=== PATIENT | male | born 1965 | race Caucasian/White ===

== ENCOUNTER 2019-09-08 18:30 | Outpatient (RCR) | payer MEDICAID, SELFPAY ==
[2016-01-30 07:56] VITALS: BMI 30.2
--- NOTE | 2019-08-23 12:06 | HP.PTEVAL_ITS ---
Patient's Visit Information DAVID COOK JR is a 53 year old M referred to Physical Therapy by Dilshad Chandler MD with a diagnosis of CERVICAL DDD. H/O COMPRESSION FX.. Date of Evaluation: 08/23/19 Physical Therapist: Ani Street PT, Cert MDT - Visit Plan Frequency: 2-3x /Week Duration: 4-6 Weeks Plan: CERVICAL US, STM, POSTURE CORRECTION/STRENGTHENING, INSTRUCTION IN APPROPRIATE BODY MECHANICS AND ACTIVITY MODIFICATIONS. NICKI UE ROM, STRETCHING AND STRENGTHENING. HEP INSTRUCTION. - Subjective Findings: Work/Leisure: LAST WORKED ABOUT 8-9 YEARS AGO. 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 Disability: ON DISABILITY FOR LLE WEAKNESS, COPD, ASTHMA, BACK PAIN, NECK PAIN AND 2 STROKES. Present symptoms: NICKI NECK PAIN. HEAD PAIN (H/O SEVERE MIRGRAINES 5-6 DAYS A WEEK). INTERMITTENT SHOOTING PAINS DOWN ARMS LIKE AN ELECTRICAL SHOCK ALL THE WAY TO THE FINGERS AND WILL STAY THERE UNTIL NECK POP OR ENOUGH TIME PASSES FOR IT TO EASE UP. Present since: 2000. Pain Scale: Worst - 9/10 Least - 5/10. Currently: 5/10. Commenced as a result of: PATIENT REPORTS HIS NECK HAS HURT EVER SINCE HE BROKE HIS BACK (T12) IN 2000. Symptoms at onset: NECK. Worse: LYING DOWN, BENDING, MVMT, BEING STILL TOO LONG. Better: BETTER WITH FREQUENT CHANGE OF POSITION, GETTING IT TO POP. Disturbed sleep: YES. Previous history/Previous treatment: PATIENT REPORTS HIS NECK HAS HURT EVER SINCE HE BROKE HIS BACK (T12) IN 2000 BUT IT HAS BEEN WORSE IN THE LAST FEW YEARS. REALLY BAD IN THE LAST 2-3 YEARS. PHYSICAL THERAPY AFTER COMPRESSION FRACTURE AND STROKE. YAN'S - BACK AND NECK. LAST YAN IN NECK WAS ABOUT 18 MONTHS AGO - DIDN'T HELP. NO NECK SURGERY. MASSAGE THERAPY. Dizziness: ONLY IF I LAY DOWN FLAT. Tinnitis: CONSTANT. Nausea: ONLY WHEN I LAY FLAT. Shortness of Breath: YES. Difficulty Swollowing: NO. Gait: HAS WALKED WITH CANE SINCE STROKE. NO RECENT CHANGES OTHER THAN BEING ABLE TO WALK A LITTLE BIT BETTER WITHOUT CANE. Accidents: FELL OFF A ROOF ABOUT 85 FEET WHILE WORKING 2000. Unexplained weight loss: NO. Imaging: NONE RECENT. PMH/Recent major surgery: 2 STROKES - MOST RECENT 2011 (LLE WEAKNESS), COPD, ASTHMA. COMPRESSION FX 2001 T12, CHRONIC NECK PAIN, CHRONIC BACK PAIN. - Objective Sitting Posture/Standing Posture: POOR. FORWARD HEAD. NO TORTICOLLIS. Active Correction of posture: PATIENT UNABLE - UPON REQUEST PATIENT REPORTS HE IS SITTING TALL HE CAN WITHOUT SEVERE BACK PAIN. Other Observations: INDEP GAIT INTO PT WITH A STRAIGHT CANE AND LIMP ON THE LLE. NO LOB. 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 RIGHT UE GROSSLY 5/5 WITH MMT'ING EXCEPT SHOULDER GRADED 4/5. LEFT UE 4-/5. Sensory deficit: NICKI UE LIGHT TOUCH SENSATION APPEARS INTACT AND SYMMETRICAL. ROM deficit: NICKI UE'S WFL. Reflexes: UNABLE TO ELICIT NICKI UE DTR'S. Dural Signs: NEGATIVE NICKI UE'S. Cervical Mvmt Loss: Flex: NIL. Pro: NIL. Ext: MOD. Ret: MOD. RSB: MOD. LSB: MOD. R Rot: MOD. L Rot: MOD. LOOKING UP ESPECIALLY INCREASES NECK PAIN ALONG WITH FLEXION. DOESN'T HURT BAD TO LOOK OVER SHOULDERS IF HE GOES SLOW. Postural strength: POOR AND PAIN LIMITED. Palpation: TENDERNESS WITH PALPATION OF NICKI UPPER TRAPS AND POSTERIOR CERVICAL MUSCULATURE. ALSO TENDER WITH LIGHT PALPATION OF ENTIRE UPPER THORACIC AND CERVIAL MUSCULATURE BUT NOT TENDER ALONG OCCIPUT. INCREASED MUSCLE TONE NICKI CERVICAL MUSCULATURE WITH MULTIPLE TRIGGER POINTS. OTHER: INITIATED STANDING ISO NECK RETRACTION DUE TO NOT BEING ABOUT TO LIE DOWN FLAT. - Goals Goal 1:: DECREASE C/O NECK PAIN Goal Time Frame: 4-6 Weeks Goal 2:: IMPROVE PERSONAL CARE, LIFTING, READING, SLEEP, WORK, DRIVING AND RECREATIONAL FUNCTION. Goal Time Frame: 4-6 Weeks Goal 3:: INSTRUCT IN PROPHYLAXIS Goal Time Frame: 4-6 Weeks - Rehabilitation Potential Rehabilitation Potential: Fair - Anticipated Interventions Patient/Client Instruction: Educate patient on: Condition, Plan of Care, Risk Factors, Benefits of Fitness Program For the Purpose of:: To improve self management Therapeutic Exercise to Include: Strength training, Body mechanics, Postural training, Flexibilty training, Active ROM, Scapular Strength/Stabilization For the Purpose of:: To decrease pain, To increase ROM, To improve muscle performance and motor function, To increase tolerance to activity/condition/position, To improve ability of physical actions for home/community/work/leisure Manual Therapy Techniques to Include: Soft tissue mobilization For the Purpose of:: To decrease pain, To increase ROM, To improve nutrient delivery to tissue TENS: Yes Cryotherapy (ice pack, ice massage): Yes Thermo therapy (hot pack): Yes Ultrasound (thermal/non thermal): Yes For the Purpose of:: To decrease pain, To decrease swelling/inflammation, To improve nutrient delivery to tissue Thank you for the opportunity to evaluate your patient. For Medicare and Medicare HMO plans, please review the plan of care and approve it. It will need to be FAXED BACK to us at [phone] for Medicare purposes. For Medicare only, by signing this I certify the plan of care. Please let me know if there are questions or concerns regarding this plan of care. Physician Signature: Date:
--- NOTE | 2019-09-29 17:44 | HP.PT.NRP ---
HP - Discharge Summary (1) - Patient Information DAVID COOK JR was seen in my office for initial evaluation on 08/23/19. The following Plan of Care was established for this patient: Initial Frequency: 2-3x /Week Initial Duration: 4-6 Weeks - Anticipated Interventions Patient/Client Instruction: Educate patient on: Condition, Plan of Care, Risk Factors, Benefits of Fitness Program For the Purpose of:: To improve self management Therapeutic Exercise to Include: Strength training, Body mechanics, Postural training, Flexibilty training, Active ROM, Scapular Strength/Stabilization For the Purpose of:: To decrease pain, To increase ROM, To improve muscle performance and motor function, To increase tolerance to activity/condition/position, To improve ability of physical actions for home/community/work/leisure Manual Therapy Techniques to Include: Soft tissue mobilization For the Purpose of:: To decrease pain, To increase ROM, To improve nutrient delivery to tissue TENS: Yes Cryotherapy (ice pack, ice massage): Yes Thermo therapy (hot pack): Yes Ultrasound (thermal/non thermal): Yes For the Purpose of:: To decrease pain, To decrease swelling/inflammation, To improve nutrient delivery to tissue This patient was last seen in our office . Pertinent comments regarding their Physical therapy will appear below: This patient has not returned to Physical Therapy and is appropriate to return to MD for further follow-up as needed. At this point I will be discontinuing this patient from physical therapy. I would be happy to see this patient again in the future if found appropriate by the physician. Thank you! Ani Street, PT, Cert MDT
== END 2019-09-08 19:00 | disposition home or self-care (01) ==
LOC: PT 18:30
PROVIDERS: Family Provider Family Medicine; PCP Family Medicine; Referring Provider Family Medicine; Visit Provider Family Medicine
DX: M50.30 Other cervical disc degeneration, unspecified cervical region (principal); M51.36 Other intervertebral disc degeneration, lumbar region; Z87.81 Personal history of (healed) traumatic fracture
CPT/HCPCS: 97035; 97140; 97162

== ENCOUNTER 2021-05-05 23:42 | Emergency (ER) | payer MEDICAID, SELFPAY ==
[2021-05-05 23:43] VITALS: BP 150/88; PULSE 77; RESP 14; TEMP 36.3; O2SAT 98; BMI 29.7
--- NOTE | 2021-05-06 00:10 | CT_ITS ---
STUDY: CT BRAIN WITHOUT CONTRAST REASON FOR EXAM: Male, 55 years old. headache RADIATION DOSAGE (If Supplied By Facility): CTDIvol = ( 44.99 ) mGy, DLP = ( 779.24 ) mGycm TECHNIQUE: Transaxial CT imaging of the brain was performed without administration of intravenous contrast material. Individualized dose optimization techniques were used for this CT. COMPARISON: No relevant priors. FINDINGS: Normal soft tissue structures. Normal calvarium. Normal size ventricles and extra-axial spaces for the patient''s age. Normal white matter tracts of the cerebral hemispheres. Normal basal ganglia and thalami. Normal brainstem. Normal cerebellum. There is no intracranial hemorrhage. There are no findings of an acute ischemic infarction. Normal visualized paranasal sinuses. CT/Brain/Head without Contrast IMPRESSION: Normal unenhanced CT scan of the brain. Electronically Signed: Usman Rubin MD at 2:01 EDT Tel , Service support ,
[2021-05-06] MEDS: 0.9% Normal Saline 1,000 ML 1000 ML IV (00:20)
[2021-05-06] MEDS: Morphine 4 MG/ML Syringe IV (00:21)
[2021-05-06] MEDS: Ondansetron 4 MG/2 ML Vial IV (00:21)
[2021-05-06 00:26] LABS: Absolute Lymphocyte Count 2.63 X10^3/uL (0.83-4.51); Absolute Neutrophil Count 5.3 X10^3/uL (2.0-7.7); Basophil# 0.04 X10^3/uL; Basophil% 0.4 % (0-1); Eosinophil# 0.12 X10^3/uL; Eosinophils% 1.3 % (0-5); Hematocrit 43.1 % (40-54); Hemoglobin 15.2 g/dL (13.0-16.5); Lymphocyte # 2.63 X10^3/ul (0.83-4.51); Lymphocyte % 28.9 % (19-41); Mean Corp Hgb Conc 35.3 g/dL (32-36); Mean Corpuscular Hgb 29.8 pg (27.0-32.0); Mean Corpuscular Volume 84.5 fL (80-94); Mean Platelet Vol. 11.3 fl (6.2-12.0); NRBC Flagged by Analyzer 0 % (0-5); Neutrophil # 5.29 X10^3/uL (2.7-7.7); Neutrophil % 58.1 % (47-70); Platelet Count 200 K/mm3 (150-450); RBC Distribution Width CV 12.9 % (11.6-14.6); RBC Distribution Width SD 39.8 fl (35.1-43.9); White Blood Count 9.1 K/mm3 (4.4-11.0)
--- NOTE | 2021-05-06 00:27 | EDS_ITS ---
HPI History of Present Illness Chief Complaint: Headache Narrative Narrative: Patient presents with a headache. As I walk into the room I noticed a small rash on his left forehead region he tells me he has never had chickenpox. He is denying neck pain. No fever or chills. No cough or congestion. Pain is basically localized to his scalp and it hurts when I push on that region. He has no vision changes, he has no confusion or speech difficulties he has no weakness or paresthesias. [facility] Medical History (Updated 05/06/21 @ 02:[address] Kalyan Stahl MD) Asthma Hypertension Migraines TIA (transient ischemic attack) Home Medications omeprazole 20 mg PO DAILY 08/05/13 [History Last Taken 01/30/16 06:00] aspirin 325 mg PO DAILY@0800 02/04/15 [History Last Taken Unknown] albuterol sulfate [Ventolin Hfa (SP)] 1 - 2 puff INHALATION Q4H PRN PRN 08/12/15 [History Last Taken Unknown] oseytqmqck-bcgherlgeqtmw-swen [Esgic] 1 tab PO DAILY PRN PRN 05/05/21 [History Last Taken Unknown] lisinopril 10 mg DAILY 05/05/21 [History Last Taken Unknown] mometasone-formoterol [Dulera] INHALATION 05/05/21 [History Last Taken Unknown] topiramate 25 mg DAILY 05/05/21 [History Last Taken Unknown] acyclovir 800 mg PO 5X/DAY #35 tab 05/06/21 [Rx Last Taken Unknown] oxycodone-acetaminophen [Percocet] 1 tab PO Q6H 3 Days #12 tab 05/06/21 [Rx Last Taken Unknown] Allergy/AdvReac Type Severity Reaction Status Date / Time BERRIES Allergy Swelling Uncoded 09/03/15 21:19 Social History Smoking Status: Current every day smoker tobacco type: cigarettes ROS ROS ED ROS Narrative Past medical history: Reviewed, includes hypertension, hypercholesterolemia, conversion disorder Medications: Reviewed Social history: Noncontributory Review of systems: All systems negative except as indicated General: No fever Eyes: No visual changes ENT: No upper airway congestion, normal voice Neck: No neck pain Cardiovascular: No chest pain Respiratory: No shortness of breath or cough Gastrointestinal: No abdominal pain, nausea vomiting or diarrhea Genitourinary: No dysuria Musculoskeletal: Denies myalgias no difficulty with ambulation Skin: Scalp and forehead rash Neurological: No memory loss, confusion or any focal weakness. Headache as in HPI Psych: No recent behavioral changes Hematologic: No easy bleeding or easy bruising EXAM Physical Exam Narrative Exam Narrative: Physical exam General: Well nourished, Well developed, No Acute Distress Head: Normocephalic, Atraumatic. Somewhat vesicular left frontal rash that I can see through part of his thinning hair. Eyes: Pupils are equal and reactive bilaterally about 3 mm, conjunctiva not pale. Full range of motion without any pain ENT: Moist mucous membranes. Somewhat vesicular left forehead rash Neck: Supple, Nontender, No lymphadenopathy Cardiovascular: Regular rate, Regular rhythm Respiratory: No distress, CTA bilaterally Abdomen: Soft, Nontender, Nondistended Back: Nontender, Normal Inspection. Negative for: CVA tenderness Extremities: Nontender, No edema Skin: As above Neurological: Alert, Normal Strength, Normal Sensation Psychological: Normal affect Const Vital Signs: 05/05/21 23:43 Temperature 97.3 F L Temperature Source Temporal Pulse Rate 77 Respiratory Rate 14 Blood Pressure 150/88 H Blood Pressure Mean 108 Pulse Ox 98 Oxygen Delivery Method Room Air MDM MDM MDM Narrative Medical decision making narrative: Patient has a normal work-up. CT is unremarkable however and reassessing him I do believe he likely has herpes zoster. I will treat him as such. I given analgesia and he improved. Lab Data Labs: Laboratory Results - last 24 hr 05/06/21 05/06/21 00:04 00:04 WBC 9.1 RBC 5.10 Hgb 15.2 Hct 43.1 MCV 84.5 MCH 29.8 MCHC 35.3 RDW Std Deviation 39.8 RDW Coeff of George 12.9 Plt Count 200 MPV 11.3 Immature Gran % (Auto) 0.300 Neut % (Auto) 58.1 Lymph % (Auto) 28.9 [place] % (Auto) 11.0 H Eos % (Auto) 1.3 Baso % (Auto) 0.4 Absolute Neuts (auto) 5.3 Absolute Lymphs (auto) 2.63 Nucleated RBC % 0 Sodium 140 Potassium 3.9 Chloride 110 H Carbon Dioxide 23.0 Anion Gap 7 BUN 16 Creatinine 1.63 H Estim Creat Clear Calc 45.66 Est GFR (MDRD) Af Amer 57 L Est GFR (MDRD) Non-Af 47 L BUN/Creatinine Ratio 9.8 L Glucose 116 H Calcium 8.8 Total Bilirubin 0.50 AST 26 ALT 28 Alkaline Phosphatase 66 Total Protein 7.6 Albumin 3.8 Globulin 3.8 Albumin/Globulin Ratio 1.0 Radiography Diagnostic Testing: Radiology Impression Brain CT 05/06/21 00:10 IMPRESSION: Normal unenhanced CT scan of the brain. Electronically Signed: Usman Rubin MD at 2:01 EDT Tel , Service support , Discharge Plan Triage Chief Complaint: Headache ED Provider: Kalyan Stahl Dx/Rx/DC Orders Clinical Impression: Herpes zoster Instructions: ED Shingles (Herpes Zoster) Prescriptions: New oxycodone-acetaminophen [Percocet] 5-325 mg tablet 1 tab PO Q6H 3 Days Qty: 12 RF: 0 acyclovir 800 mg tablet 800 mg PO 5X/DAY Qty: 35 RF: 0 No Action omeprazole 20 MG capsule 20 mg PO DAILY RF: 0 aspirin 81 MG tablet,chewable 325 mg PO DAILY@0800 RF: 0 albuterol sulfate [Ventolin HFA] 1 INHALER inhaler 1 - 2 puff inhalation Q4H PRN PRN (Reason: Wheezing) RF: 0 topiramate 25 mg tablet 25 mg DAILY RF: 0 wpyiskhquz-sdyqjpbmdurey-trps [Esgic] 50-325-40 mg tablet 1 tab PO DAILY PRN PRN (Reason: Headache) RF: 0 lisinopril 10 mg tablet 10 mg DAILY RF: 0 Dulera 200-5 mcg/actuation HFA aerosol inhaler INHALATION RF: 0 Primary Care Provider: Dilshad Chandler Referrals: Dilshad Chandler MD [Primary Care Provider] - 3-5 Days Disposition Disposition: Home, Self Care
[2021-05-06 00:41] LABS: AST(SGOT) 26 U/L (15-37); Alanine Aminotransfer ALT/SGPT 28 U/L (16-61); Albumin, Serum 3.8 g/dL (3.2-5.0); Alkaline Phosphatase 66 U/L (45-117); Anion Gap 7 (5-15); BUN 16 mg/dL (7-18); BUN/Creat Ratio 9.8 RATIO (10-20); Calcium,Total 8.8 mg/dL (8.5-10.1); Chloride 110 mmol/L (98-107); Creatinine, Serum 1.63 mg/dL (0.70-1.30); EST Glomerular Filtration Rate 47 mL/min (>60); Est Glom Filt Rate - Afr Amer 57 mL/min (>60); Estimated Creatinine Clearance 45.66 ml/min; Globulin 3.8 g/dL (2.2-4.2); Glucose 116 mg/dL (74-106); Potassium 3.9 mmol/L (3.5-5.1); Protein, Total 7.6 g/dL (6.4-8.2); Sodium Level 140 mmol/L (136-145)
[2021-05-06] MEDS: oxyCODONE 5 MG Tablet 10 MG PO (02:30)
[2021-05-06] MEDS: Acyclovir 800 MG Tablet PO (02:31)
[2021-05-06 02:35] VITALS: BP 116/92; PULSE 75; RESP 16; O2SAT 99
== END 2021-05-06 02:35 | disposition home or self-care (01) ==
PROVIDERS: Emergency Provider Emergency Medicine; PCP Family Medicine
DX: B02.9 Zoster without complications (principal); J45.909 Unspecified asthma, uncomplicated; I10 Essential (primary) hypertension; F17.210 Nicotine dependence, cigarettes, uncomplicated; Z86.73 Personal history of transient ischemic attack (TIA), and cerebral infarction without residual deficits; Z79.51 Long term (current) use of inhaled steroids; Z79.899 Other long term (current) drug therapy
CPT/HCPCS: 70450; 80053; 85025; 96361; 96374; 96375; 99283; J7030; A4216; J2405

== ENCOUNTER 2021-09-02 15:31 | Emergency (ER) | payer MEDICAID, SELFPAY ==
[2021-09-02 15:32] VITALS: BP 120/90; PULSE 104; RESP 16; TEMP 36.6; O2SAT 96; BMI 31.0
[2021-09-02 15:38] VITALS: BP 120/90; PULSE 104; RESP 16; TEMP 36.6; O2SAT 96
--- NOTE | 2021-09-02 16:01 | ED.VIS.DYS ---
HPI History of Present Illness Chief Complaint: Cold Sx Informant: patient Onset/Context/Timing Onset: Days (4) Context: gradual Timing: Continuous Quality: Positive for - (Lightheaded) Worsened by: Nothing Relieved by: Nothing Associated Symptoms cough, rhinorrhea, fever, clear sputum and yellow sputum; Negative for post nasal drip, ear pain, sore throat, chills, sweats, white sputum or green sputum Chest Pain: Positive for None Narrative Narrative: Patient presents with cough and congestion that has been getting worse over the last 4 days. Patient states he feels lightheaded. Patient states he is coughing up some clear sputum but occasionally coughs up some yellow sputum in the mornings. Patient admits to some rhinorrhea. Patient states he had a fever at home of 100. Patient admits to some rhinorrhea. Patient denies any chest pain or shortness of breath. Patient admits to some nausea, vomiting, and diarrhea. Patient also admits to a headache. [facility] Medical History (Updated 09/02/21 @ 17:[address] Leonardo Carroll, ) Asthma Hypertension Migraines TIA (transient ischemic attack) Home Medications omeprazole 20 mg PO DAILY 08/05/13 [History Last Taken 01/30/16 06:00] aspirin 325 mg PO DAILY@0800 02/04/15 [History Last Taken Unknown] albuterol sulfate [Ventolin Hfa (SP)] 1 - 2 puff INHALATION Q4H PRN PRN 08/12/15 [History Last Taken Unknown] qqnceygnmq-phbcthmifgdrg-qpzk [Esgic] 1 tab PO DAILY PRN PRN 05/05/21 [History Last Taken Unknown] lisinopril 10 mg DAILY 05/05/21 [History Last Taken Unknown] mometasone-formoterol [Dulera] INHALATION 05/05/21 [History Last Taken Unknown] topiramate 25 mg DAILY 05/05/21 [History Last Taken Unknown] acyclovir 800 mg PO 5X/DAY #35 tab 05/06/21 [Rx Last Taken Unknown] oxycodone-acetaminophen [Percocet] 1 tab PO Q6H 3 Days #12 tab 05/06/21 [Rx Last Taken Unknown] Allergy/AdvReac Type Severity Reaction Status Date / Time BERRIES Allergy Swelling Uncoded 09/02/21 15:34 Surgical History Hx of cardiac catheterization Hx of cataract surgery Hx of sinus surgery Social History Smoking Status: Current every day smoker tobacco type: cigarettes ROS ROS ED Constitutional Constitutional ED: Denies chills or fever(s) Eyes Eyes: Denies blurry vision or change in vision ENT ENT ED: Denies rhinorrhea or sore throat Cardiovascular Cardiovascular: Denies chest pain or palpitations Respiratory/Chest Respiratory/Chest: Reports cough and sputum; Denies dyspnea Gastrointestinal Gastrointestinal: Reports diarrhea, nausea and vomiting Genitourinary Genitourinary ED: Denies dysuria or hematuria Musculoskeletal Musculoskeletal: Denies back pain or neck pain Integumentary Denies abscess or rash Neurologic Neurologic: Reports headache(s); Denies weakness Allergic/Immunologic Allergic/Immunologic ED: Denies mouth swelling or urticaria EXAM Physical Exam Const Vital Signs: 09/02/21 15:32 09/02/21 15:38 09/02/21 16:09 Temperature 98 F 98 F Temperature Source Temporal Temporal Pulse Rate 104 H 104 H Respiratory Rate 16 16 Respiratory Effort Short of Breath Respiratory Depth Normal Respiratory Pattern Normal Blood Pressure 120/90 H 120/90 H Blood Pressure Mean 100 100 Pulse Ox 96 96 Oxygen Delivery Method Room Air Room Air Room Air 09/02/21 16:12 Temperature Temperature Source Pulse Rate 92 Respiratory Rate 14 Respiratory Effort Respiratory Depth Respiratory Pattern Normal Blood Pressure Blood Pressure Mean Pulse Ox Oxygen Delivery Method Positive well nourished and well developed General Appearance ED: well developed HEENT Reports moist mucous membranes Neck supple and no JVD Resp normal respiratory effort Auscultation: wheezes expiratory wheezes and throughout Cardio regular rate, regular rhythm and no murmurs GI non-tender Palpation: soft Neuro oriented x3, CN's II-XII intact bilaterally and no sensory deficits noted Sensorium / Orientation: alert Motor Exam: strength 5/5 throughout Psych mental status grossly normal Skin Lesions: no lesions Rashes: no rashes MDM MDM MDM Narrative Medical decision making narrative: Portable 1 view chest x-ray was obtained. On my interpretation, lung hoff are clear. There is normal cardiac silhouette. Bony thorax is normal. There is no acute process noted. Radiologist also interpreted the x-ray and agrees. CBC and comprehensive metabolic profile were obtained and were essentially within normal limits. Creatinine was slightly elevated at 1.47 but this is consistent with prior results. COVID-19 rapid antigen was obtained and was negative. Influenza swabs were negative. Patient was advised of his findings. Patient was instructed to take Tylenol or ibuprofen as needed for any fevers or pain. Patient was instructed to drink plenty of fluids. Patient was instructed to follow-up with his primary care physician in 5 to 7 days. Patient understood and was agreeable with the plan. All questions were answered. Lab Data Attestation: I reviewed the patient's lab results. Labs: Laboratory Results - last 24 hr 09/02/21 09/02/21 16:07 16:07 WBC 7.8 RBC 5.27 Hgb 15.2 Hct 45.3 MCV 86.0 MCH 28.8 MCHC 33.6 RDW Std Deviation 39.9 RDW Coeff of [place] 12.8 Plt Count 188 MPV 10.2 Immature Gran % (Auto) 0.300 Neut % (Auto) 57.6 Lymph % (Auto) 28.1 [place] % (Auto) 12.1 H Eos % (Auto) 1.3 Baso % (Auto) 0.6 Absolute Neuts (auto) 4.5 Absolute Lymphs (auto) 2.19 Nucleated RBC % 0 Sodium 139 Potassium 4.1 Chloride 110 H Carbon Dioxide 27.0 Anion Gap 2 L BUN 17 Creatinine 1.47 H Estim Creat Clear Calc 45.16 Est GFR (MDRD) Af Amer 64 Est GFR (MDRD) Non-Af 53 L BUN/Creatinine Ratio 11.6 Glucose 113 H Calcium 9.0 Total Bilirubin 0.80 AST 38 H ALT 38 Alkaline Phosphatase 56 Total Protein 7.9 Albumin 3.6 Globulin 4.3 H Albumin/Globulin Ratio 0.8 L Radiography Chest X-Ray - ED: 1 View, Read by ED Physician, Read by Radiologist and Normal Diagnostic Testing: Clinical Impression(s) from Imaging Studies Chest X-Ray 09/02/21 16:15 IMPRESSION: No acute radiographic abnormalities. Electronically Signed: Nirmal Juarez MD at 17:01 EST Tel , Service support , Discharge Plan Triage Chief Complaint: Cold Sx ED Provider: Schwiger,Leonardo Dx/Rx/DC Orders Clinical Impression: Viral URI Instructions: ED URI, Viral, No Abx (Adult) Prescriptions: No Action omeprazole 20 MG capsule 20 mg PO DAILY RF: 0 aspirin 81 MG tablet,chewable 325 mg PO DAILY@0800 RF: 0 albuterol sulfate [Ventolin HFA] 1 INHALER inhaler 1 - 2 puff inhalation Q4H PRN PRN (Reason: Wheezing) RF: 0 topiramate 25 mg tablet 25 mg DAILY RF: 0 trpmniujaz-ymycjdcjcrvlc-febs [Esgic] 50-325-40 mg tablet 1 tab PO DAILY PRN PRN (Reason: Headache) RF: 0 lisinopril 10 mg tablet 10 mg DAILY RF: 0 Dulera 200-5 mcg/actuation HFA aerosol inhaler INHALATION RF: 0 oxycodone-acetaminophen [Percocet] 5-325 mg tablet 1 tab PO Q6H 3 Days Qty: 12 RF: 0 acyclovir 800 mg tablet 800 mg PO 5X/DAY Qty: 35 RF: 0 Primary Care Provider: Dilshad Chandler Referrals: Dilshad Chandler MD [Primary Care Provider] - 3-5 Days Disposition Disposition: Home, Self Care
[2021-09-02 16:09] VITALS: O2SAT 96
[2021-09-02 16:12] VITALS: PULSE 92; RESP 14
--- NOTE | 2021-09-02 16:15 | RAD_ITS ---
INDICATION: Dyspnea EXAMINATION/TECHNIQUE: X-RAY - XR Chest 1 View COMPARISON: 06/06/2013. FINDINGS: The lungs are clear. The cardiomediastinal silhouette is unremarkable. No pleural effusion or pneumothorax. No acute osseous abnormalities. RAD/Chest 1 View (Portable) IMPRESSION: No acute radiographic abnormalities. Electronically Signed: Nirmal Juarez MD at 17:01 EST Tel , Service support ,
[2021-09-02 16:16] LABS: Absolute Lymphocyte Count 2.19 X10^3/uL (0.83-4.51); Absolute Neutrophil Count 4.5 X10^3/uL (2.0-7.7); Basophil# 0.05 X10^3/uL; Basophil% 0.6 % (0-1); Eosinophils% 1.3 % (0-5); Hematocrit 45.3 % (40-54); Hemoglobin 15.2 g/dL (13.0-16.5); Lymphocyte # 2.19 X10^3/ul (0.83-4.51); Lymphocyte % 28.1 % (19-41); Mean Corp Hgb Conc 33.6 g/dL (32-36); Mean Corpuscular Hgb 28.8 pg (27.0-32.0); Mean Platelet Vol. 10.2 fl (6.2-12.0); Monocyte# 0.94 X10^3/uL; Monocyte% 12.1 % (0-10); NRBC Flagged by Analyzer 0 % (0-5); Neutrophil # 4.49 X10^3/uL (2.7-7.7); Neutrophil % 57.6 % (47-70); Platelet Count 188 K/mm3 (150-450); RBC Distribution Width CV 12.8 % (11.6-14.6); RBC Distribution Width SD 39.9 fl (35.1-43.9); Red Blood Count 5.27 M/mm3 (4.6-6.2); White Blood Count 7.8 K/mm3 (4.4-11.0)
[2021-09-02 16:33] LABS: ALB/GLOB Ratio 0.8 RATIO (0.9-2.4); AST(SGOT) 38 U/L (15-37); Alanine Aminotransfer ALT/SGPT 38 U/L (16-61); Albumin, Serum 3.6 g/dL (3.2-5.0); Alkaline Phosphatase 56 U/L (45-117); Anion Gap 2 (5-15); BUN 17 mg/dL (7-18); BUN/Creat Ratio 11.6 RATIO (10-20); Chloride 110 mmol/L (98-107); Creatinine, Serum 1.47 mg/dL (0.70-1.30); EST Glomerular Filtration Rate 53 mL/min (>60); Est Glom Filt Rate - Afr Amer 64 mL/min (>60); Estimated Creatinine Clearance 45.16 ml/min; Globulin 4.3 g/dL (2.2-4.2); Glucose 113 mg/dL (74-106); Potassium 4.1 mmol/L (3.5-5.1); Protein, Total 7.9 g/dL (6.4-8.2); Sodium Level 139 mmol/L (136-145)
[2021-09-02 17:42] VITALS: BP 126/82; PULSE 90; RESP 16; O2SAT 98
== END 2021-09-02 17:43 | disposition home or self-care (01) ==
PROVIDERS: Emergency Provider Emergency Medicine; PCP Family Medicine
DX: J06.9 Acute upper respiratory infection, unspecified (principal); J45.909 Unspecified asthma, uncomplicated; I10 Essential (primary) hypertension; F17.210 Nicotine dependence, cigarettes, uncomplicated; Z86.73 Personal history of transient ischemic attack (TIA), and cerebral infarction without residual deficits; Z79.51 Long term (current) use of inhaled steroids; Z79.899 Other long term (current) drug therapy
CPT/HCPCS: 71045; 80053; 85025; 87426; 87804; 94640; 99283; A4216

== ENCOUNTER 2021-09-16 15:18 | Emergency (ER) | payer MEDICAID, SELFPAY ==
[2021-09-16 15:19] VITALS: BP 140/99; PULSE 88; RESP 16; TEMP 35.8; O2SAT 96; BMI 29.0
--- NOTE | 2021-09-16 15:33 | CT_ITS ---
STUDY: CTA OF THE BRAIN REASON FOR EXAM: Male, 55 years old. headache RADIATION DOSAGE (If Supplied By Facility): CTDIvol = ( 16.69 ) mGy, DLP = ( 387.10 ) mGycm TECHNIQUE: CT head without IV contrast. CT angiography was performed with a multi-detector CT scanner. Data acquisition was obtained from the skull base through the vertex following intravenous administration of IV 100mL [id number]-[id number]. MIP images were reconstructed from the axial data set. Post-processing of the angiographic images was performed, with multiplanar reformation and 3D reconstruction. Individualized dose optimization techniques were used for this CT. COMPARISON: Prior CT head 25 April 2012, 21 October 2011 MR a brain FINDINGS: Normal bilateral petrous carotid arteries. Normal right cavernous carotid artery with a normal supraclinoid bifurcation. Normal left cavernous carotid artery with a normal supraclinoid bifurcation. Normal right A1 segments of the anterior cerebral artery. Normal left A1 segments of the anterior cerebral artery. Normal intact anterior communicating artery (ACOM). Normal bilateral A2 segments of the anterior cerebral arteries. Normal right M1 and M2 segments of the middle cerebral arteries, with a normal M1 bifurcation. Normal left M1 and M2 segments of the middle cerebral arteries, with a normal M1 bifurcation. 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 Normal bilateral vertebral arteries. Normal basilar artery with a normal basilar bifurcation. The visualized bilateral superior cerebellar (SCA) arteries are normal. Normal bilateral, P2 and visualized P3 segments of the posterior cerebral arteries. Congenitally aplastic left P1 segment. There is no demonstrated aneurysm of the [place]. There is no demonstrated abnormality of the visualized brain. Appearance is stable since prior. IMPRESSION: Normal [place] without a demonstrated aneurysm or hemodynamically significant stenosis. Electronically Signed: Yohan Guerrero MD at 17:24 EST Tel , Service support , STUDY: CT BRAIN WITHOUT CONTRAST REASON FOR EXAM: Male, 55 years old. Headache RADIATION DOSAGE (If Supplied By Facility): CTDIvol = ( 44.99 ) mGy, DLP = ( 734.24 ) mGycm TECHNIQUE: Transaxial CT imaging of the brain was performed without administration of intravenous contrast material. Individualized dose optimization techniques were used for this CT. COMPARISON: 06 May 2021 FINDINGS: Brain parenchyma is without focal lesions, mass effect, acute intracranial hemorrhage, extra parenchymal fluid collections, hydrocephalus or herniation. The skull is intact. CT/CTA Head W/WO Contrast IMPRESSION: 1. Normal CT brain. Electronically Signed: Yohan Guerrero MD at 17:25 EST Tel , Service support ,
--- NOTE | 2021-09-16 15:35 | EDS_ITS ---
HPI History of Present Illness Chief Complaint: Headache Narrative Narrative: Patient presents with a headache for the past 10 days. This was gradual in onset and got worse. He has a history of migraines however this is somewhat different. Most of his migraines are frontal this 1 is in the posterior. He has no neck pain or stiffness no fevers or chills. He has no vision changes no nausea or vomiting. No temporal pain. No chest pain or shortness of breath. No weakness or paresthesias or gait abnormalities. [facility] Medical History (Updated 09/16/21 @ 19:[address] Kalyan Stahl MD) Asthma Hypertension Migraines TIA (transient ischemic attack) Home Medications omeprazole 20 mg PO DAILY 08/05/13 [History Last Taken 01/30/16 06:00] aspirin 325 mg PO DAILY@0800 02/04/15 [History Last Taken Unknown] albuterol sulfate [Ventolin Hfa (SP)] 1 - 2 puff INHALATION Q4H PRN PRN 08/12/15 [History Last Taken Unknown] sjyoxhsjdk-yxrijqwiocjrv-rzty [Esgic] 1 tab PO DAILY PRN PRN 05/05/21 [History Last Taken Unknown] lisinopril 10 mg DAILY 05/05/21 [History Last Taken Unknown] mometasone-formoterol [Dulera] 2 puff INHALATION DAILY 05/05/21 [History Last Taken Unknown] topiramate 25 mg DAILY 05/05/21 [History Last Taken Unknown] acyclovir 800 mg PO 5X/DAY #35 tab 05/06/21 [Rx Last Taken Unknown] oxycodone-acetaminophen [Percocet] 1 tab PO Q6H 3 Days #12 tab 05/06/21 [Rx Last Taken Unknown] nortriptyline 50 mg PO QHS #5 cap 09/16/21 [Rx Last Taken Unknown] Allergy/AdvReac Type Severity Reaction Status Date / Time BERRIES Allergy Swelling Uncoded 09/02/21 15:34 Surgical History Hx of cardiac catheterization Hx of cataract surgery Hx of sinus surgery Social History Smoking Status: Current every day smoker tobacco type: cigarettes ROS ROS ED ROS Narrative Past medical history: Reviewed, significant for hypertension, hyperlipidemia chronic back and leg pain Medications: Reviewed Social history: Noncontributory Review of systems: All systems negative except as indicated General: No fever. Headache as in HPI Eyes: No visual changes ENT: No upper airway congestion, normal voice Neck: No neck pain Cardiovascular: No chest pain Respiratory: No shortness of breath or cough Gastrointestinal: No abdominal pain, nausea vomiting or diarrhea Genitourinary: No dysuria Musculoskeletal: Chronic back and leg pain Skin: No rash Neurological: No memory loss, confusion or any focal weakness Psych: No recent behavioral changes Hematologic: No easy bleeding or easy bruising EXAM Physical Exam Narrative Exam Narrative: Physical exam General: Patient appears somewhat uncomfortable. Head: Normocephalic, Atraumatic. I can reproduce his pain in the posterior occiput region on the right no temporal artery pain no mastoid tenderness. Eyes: Conjunctiva not pale ENT: Slightly dry mucous membranes Neck: Supple, Nontender, No lymphadenopathy Cardiovascular: Regular rate, Regular rhythm Respiratory: No distress, CTA bilaterally Abdomen: Soft, Nontender, Nondistended Back: Nontender, Normal Inspection. Negative for: CVA tenderness Extremities: Nontender, No edema Skin: Normal color, No rash Neurological: Alert, Normal Strength, Normal Sensation Psychological: Normal affect Const Vital Signs: 09/16/21 15:19 09/16/21 18:49 Temperature 96.5 F L Temperature Source Temporal Pulse Rate 88 85 Respiratory Rate 16 16 Blood Pressure 140/99 H 142/79 H Blood Pressure Mean 112 100 Pulse Ox 96 97 Oxygen Delivery Method Room Air Room Air MDM MDM MDM Narrative Medical decision making narrative: Patient has a normal ED work-up. Since he did not improve after a migraine cocktail, I went back to examine him he does little ve quite a bit of pain in that occipital notch region, I was worried about occipital neuralgia, I did a nerve block with lidocaine see procedure note below. This improved his pain significantly thus I placed 20 mg of Kenalog. Otherwise he can follow-up with his doctor. Procedure note: Occipital nerve block Verbal consent obtained. I used alcohol and Shur-Clens. A total of 5 mL of 1% lidocaine were injected in the occipital notch. After 5 minutes patient had significant improvement I went back and placed 20 mg of triamcinolone in that same occipital notch. Patient tolerated procedure well. Radiography Diagnostic Testing: Clinical Impression(s) from Imaging Studies Head CTA 09/16/21 15:33 IMPRESSION: 1. Normal CT brain. Electronically Signed: Yohan Guerrero MD at 17:25 EST Tel , Service support , Discharge Plan Triage Chief Complaint: Headache ED Provider: Kalyan Stahl Dx/Rx/DC Orders Clinical Impression: Headache, Occipital neuralgia Instructions: Understanding Headache Pain Prescriptions: New nortriptyline 50 mg capsule 50 mg PO QHS Qty: 5 RF: 0 No Action omeprazole 20 MG capsule 20 mg PO DAILY RF: 0 aspirin 81 MG tablet,chewable 325 mg PO DAILY@0800 RF: 0 albuterol sulfate [Ventolin HFA] 1 INHALER inhaler 1 - 2 puff inhalation Q4H PRN PRN (Reason: Wheezing) RF: 0 topiramate 25 mg tablet 25 mg DAILY RF: 0 wmodluefne-vdpzkqndsaubk-posl [Esgic] 50-325-40 mg tablet 1 tab PO DAILY PRN PRN (Reason: Headache) RF: 0 lisinopril 10 mg tablet 10 mg DAILY RF: 0 Dulera 200-5 mcg/actuation HFA aerosol inhaler 2 puff INHALATION DAILY RF: 0 oxycodone-acetaminophen [Percocet] 5-325 mg tablet 1 tab PO Q6H 3 Days Qty: 12 RF: 0 acyclovir 800 mg tablet 800 mg PO 5X/DAY Qty: 35 RF: 0 Primary Care Provider: Dilshad Chandler Referrals: Dilshad Chandler MD [Primary Care Provider] - 3-5 Days Disposition Disposition: Home, Self Care
[2021-09-16] MEDS: 0.9% Normal Saline 1,000 ML 999 ML IV (16:32)
[2021-09-16] MEDS: Ketorolac 15 MG/ML Vial IV (16:33)
[2021-09-16] MEDS: DiphenhydrAMINE 50 MG/ML Syringe 25 MG IV (16:33)
[2021-09-16] MEDS: Metoclopramide 10 MG/2 ML Vial IV (16:33)
[2021-09-16] MEDS: Lidocaine 1% (20 ml mdv) 20 ML Vial INFILT (18:35)
[2021-09-16 18:49] VITALS: BP 142/79; PULSE 85; RESP 16; O2SAT 97
[2021-09-16] MEDS: Triamcinolone Acetonide 40 MG/ML Vial IM (18:50)
[2021-09-16] MEDS: oxyCODONE 5 MG Tablet 10 MG PO (19:35)
[2021-09-16 19:36] VITALS: BP 165/105; PULSE 72; RESP 16; O2SAT 98
== END 2021-09-16 19:40 | disposition home or self-care (01) ==
PROVIDERS: Emergency Provider Emergency Medicine; PCP Family Medicine
DX: M54.81 Occipital neuralgia (principal); I10 Essential (primary) hypertension; J45.909 Unspecified asthma, uncomplicated; F17.210 Nicotine dependence, cigarettes, uncomplicated; Z79.51 Long term (current) use of inhaled steroids; Z79.899 Other long term (current) drug therapy
CPT/HCPCS: 64450; 70496; 96361; 96372; 96374; 96375; 99283; J7030; Q9967

== ENCOUNTER 2022-05-23 15:47 | Emergency (ER) | payer MEDICAID, SELFPAY ==
[2022-05-23 15:48] VITALS: BP 132/89; PULSE 88; RESP 16; TEMP 36.7; O2SAT 97; BMI 29.8
[2022-05-23] MEDS: 0.9% Normal Saline 1,000 ML 1000 ML IV (16:36)
[2022-05-23 16:44] LABS: Bacteria 0 SEEN /hpf (None Seen); Mucous, Urine 0 SEEN /hpf (<or=2+); Red Blood Cells-Urine 0 SEEN /hpf (0-5); Squamous Epithelial Cells - UA 0 SEEN /hpf (0-5); White Blood Cells 0 SEEN /hpf (0-5)
[2022-05-23 16:47] LABS: Absolute Lymphocyte Count 2.86 X10^3/uL (0.83-4.51); Absolute Neutrophil Count 6.1 X10^3/uL (2.0-7.7); Basophil# 0.04 X10^3/uL; Basophil% 0.4 % (0-1); Eosinophil# 0.08 X10^3/uL; Eosinophils% 0.8 % (0-5); Hematocrit 44.8 % (40-54); Hemoglobin 15.7 g/dL (13.0-16.5); Lymphocyte # 2.86 X10^3/ul (0.83-4.51); Lymphocyte % 28.5 % (19-41); Mean Corpuscular Hgb 28.9 pg (27.0-32.0); Mean Corpuscular Volume 82.5 fL (80-94); Mean Platelet Vol. 10.6 fl (6.2-12.0); Monocyte# 0.97 X10^3/uL; Monocyte% 9.7 % (0-10); NRBC Flagged by Analyzer 0 % (0-5); Neutrophil # 6.05 X10^3/uL (2.7-7.7); Neutrophil % 60.2 % (47-70); Platelet Count 205 K/mm3 (150-450); RBC Distribution Width CV 13.2 % (11.6-14.6); RBC Distribution Width SD 39.2 fl (35.1-43.9); Red Blood Count 5.43 M/mm3 (4.6-6.2)
--- NOTE | 2022-05-23 16:54 | EDS_ITS ---
HPI <JAMIE Rasmussen - Last Filed: 05/23/22 18:02> History of Present Illness Chief Complaint: Abd Pain Narrative Narrative: 56-year-old male with history of hypertension, hyperlipidemia, TIA, presents to the emergency department with 3 days of right lower quadrant abdominal pain. Patient did speak with his physician, [facility]. Patient denies any nausea, vomiting, patient does state to have some diarrhea. Patient does state to have some blood in his stool however this has been ongoing for years. Patient states he usually has 3 bloody stools a month. He has been seen Dr. Chandler for several years for this and has had multiple colonoscopies. He denies any fevers or chills PFS <JAMIE Rasmussen - Last Filed: 05/23/22 18:02> [facility] Medical History (Updated 05/23/22 @ 18:02 by JAMIE Rasmussen) Asthma Hypertension Migraines TIA (transient ischemic attack) Home Medications omeprazole 20 mg capsule,delayed release 20 mg PO DAILY 08/05/13 [History Last Taken 01/30/16 06:00] aspirin 81 mg chewable tablet 325 mg PO DAILY@0800 02/04/15 [History Last Taken Unknown] albuterol sulfate 90 mcg/actuation aerosol inhaler (Ventolin HFA) 1 - 2 puff inhalation Q4H PRN PRN Wheezing 08/12/15 [History Last Taken Unknown] gyudhfulkb-geaprupuhllxp-rpubaelo 50 mg-325 mg-40 mg tablet (Esgic) 1 tab PO DAILY PRN PRN Headache 05/05/21 [History Last Taken Unknown] lisinopril 10 mg tablet 10 mg DAILY 05/05/21 [History Last Taken Unknown] mometasone-formoterol HFA 200 mcg-5 mcg/actuation aerosol inhaler (Dulera) 2 puff inhalation DAILY 05/05/21 [History Last Taken Unknown] topiramate 25 mg tablet 25 mg DAILY 05/05/21 [History Last Taken Unknown] oxycodone-acetaminophen 5 mg-325 mg tablet (Percocet) 1 tab PO Q6H 3 days #12 tabs 05/06/21 [Rx Last Taken Unknown] Allergy/AdvReac Type Severity Reaction Status Date / Time BERRIES Allergy Swelling Uncoded 05/23/22 16:08 Surgical History Hx of cardiac catheterization Hx of cataract surgery Hx of sinus surgery Social History Smoking Status: Current every day smoker tobacco type: cigarettes ROS <CORDELL RasmussenC - Last Filed: 05/23/22 18:02> ROS ED ROS Narrative Constitutional: Negative for fever, chills, weight loss, weakness Eyes: Negative for vision loss, vision change, double vision ENT: Negative for any sore throat, ear pain, congestion Cardiovascular: Negative for any chest pain, tightness, palpitations Respiratory: Negative for any cough, sputum production, hemoptysis, dyspnea, dyspnea on exertion, orthopnea Gastrointestinal: Negative for any nausea, vomiting, constipation, blood in stool, blood in vomit. Positive for abdominal pain, diarrhea : Negative for any urinary frequency, dysuria, retention, blood in urine Muscle skeletal: Negative for any muscle joint pain, stiffness, myalgias, arthralgias, neck pain, back pain Neurological: Negative for any headache, syncope, numbness or tingling, dizziness Skin: Negative for any rashes, lumps, itching, abrasions, lacerations Psychiatric: Negative for any depression, anxiety, stress, suicidal ideation, homicidal ideation Hematologic: Negative for any easy bruising, excessive bruising, easy bleeding Allergies: Negative for any eczema, hives, rash EXAM <JAMIE Rasmussen - Last Filed: 05/23/22 18:02> Physical Exam Narrative Exam Narrative: Vital signs reviewed. HEET: Head normocephalic atraumatic, TMs clear bilaterally. Posterior pharynx is clear, moist mucous membranes. Nares clear bilaterally. Neck: Supple with no lymphadenopathy or tenderness. No signs of meningismus, negative jolt sign. Cardiac: Regular rate and rhythm no murmurs gallops or rubs, equal peripheral pu lses bilaterally. Respiratory: Lungs clear to auscultation bilaterally. No chest tenderness. Abdomen: Soft, nondistended. No abdominal bruit or pulsatile masses. No hepatosplenomegaly. Positive for right lower quad abdominal pain, very specific point in the right lower quadrant abdominal pain Extremities: No peripheral edema, no signs of gross trauma or deformity. Active full range of motion of all extremities. Neuro: Cranial nerves II through XII intact, no focal neurological deficits. Skin: Clean dry and intact with no rash, purpura, petechiae, vesicles or pustules. Backs/flank: No CVA tenderness, no midline spinal tenderness, no deformity. Psych: Normal mood and affect. No SI, HI or acute psychosis. Const Vital Signs: 05/23/22 15:48 05/23/22 15:48 05/23/22 18:15 Temperature 98.1 F 98.1 F 98.1 F Temperature Source Temporal Temporal Temporal Pulse Rate 88 88 88 Respiratory Rate 16 16 17 Blood Pressure 132/89 H 132/89 H 116/86 H Blood Pressure Mean 103 103 96 Pulse Ox 97 97 99 Oxygen Delivery Method Room Air Room Air Room Air 05/23/22 18:16 Temperature 98.1 F Temperature Source Pulse Rate 88 Respiratory Rate 17 Blood Pressure 116/86 H Blood Pressure Mean Pulse Ox 99 Oxygen Delivery Method Image ED - Body Diagram Man: 1. RLQ abdominal pain <Gentry Walsh MD - Last Filed: 05/24/22 00:13> Physical Exam Const Vital Signs: 05/23/22 15:48 05/23/22 15:48 05/23/22 18:15 Temperature 98.1 F 98.1 F 98.1 F Temperature Source Temporal Temporal Temporal Pulse Rate 88 88 88 Respiratory Rate 16 16 17 Blood Pressure 132/89 H 132/89 H 116/86 H Blood Pressure Mean 103 103 96 Pulse Ox 97 97 99 Oxygen Delivery Method Room Air Room Air Room Air 05/23/22 18:16 Temperature 98.1 F Temperature Source Pulse Rate 88 Respiratory Rate 17 Blood Pressure 116/86 H Blood Pressure Mean Pulse Ox 99 Oxygen Delivery Method MDM <JAMIE Rasmussen - Last Filed: 05/23/22 18:02> [facility] Lab Data Labs: Laboratory Results - last 24 hr 05/23/22 05/23/22 05/23/22 16:30 16:30 16:30 WBC 10.0 RBC 5.43 Hgb 15.7 Hct 44.8 MCV 82.5 MCH 28.9 MCHC 35.0 RDW Std Deviation 39.2 RDW Coeff of George 13.2 Plt Count 205 MPV 10.6 Immature Gran % (Auto) 0.400 Neut % (Auto) 60.2 Lymph % (Auto) 28.5 [place] % (Auto) 9.7 Eos % (Auto) 0.8 Baso % (Auto) 0.4 Absolute Neuts (auto) 6.1 Absolute Lymphs (auto) 2.86 Nucleated RBC % 0 Sodium 136 Potassium 4.2 Chloride 105 Carbon Dioxide 27.0 Anion Gap 4 L BUN 15 Creatinine 1.19 Estim Creat Clear Calc 64.03 Est GFR (MDRD) Af Amer 81 Est GFR (MDRD) Non-Af 67 BUN/Creatinine Ratio 12.6 Glucose 98 Calcium 8.9 Urine Color Yellow Urine Clarity Clear Urine pH 6.0 Ur Specific [place] 1.020 Urine Protein 15 H Urine Glucose (UA) Normal Urine Ketones Negative Urine Occult Blood 10 H Urine Nitrite Negative Urine Bilirubin Negative Urine Urobilinogen 4 H Ur Leukocyte Esterase Negative Urine RBC 0 SEEN Urine WBC 0 SEEN Ur Squamous Epith Cells 0 SEEN Urine Bacteria 0 SEEN Urine Mucus 0 SEEN Radiography Diagnostic Testing: Clinical Impression(s) from Imaging Studies Abdomen/Pelvis CT 05/23/22 17:11 IMPRESSION: Mildly enlarged nonspecific fatty infiltrated liver. No evidence for small bowel obstruction or other acute abnormality. Electronically Signed: Lloyd Haddad MD at 17:37 EDT , Treatment and Re-Evaluation Narrative: Patient appears well, patient appears nontoxic, vital signs are stable. Patient presents to the emergency department with complaints of 3 days of right lower quadrant abdominal pain, concerning for appendicitis or other abdominal pathology. He did see his PCP referred him here. Patient did receive a full abdominal work-up, patient CBC was unremarkable, patient's chemistries were unremarkable, patient's urinalysis was negative for any infection. Patient did receive a CT scan of the abdomen pelvis with IV contrast, this did show mildly enlarged nonspecific fatty infiltration of the liver however no other acute abnormality. There is no evidence of any bowel obstruction, appendicitis, di verticulitis. Patient is happy with the plan of care, he will follow-up with his PCP. Patient states his pain overall is around 1 at this time, he does not want anything for home. He is stable for discharge <Gentry Walsh MD - Last Filed: 05/24/22 00:13> MDM MDM Narrative Medical decision making narrative: I have personally performed a face to face assessment of the patient and have reviewed the DANIEL Note. I performed a substantive portion of the visit including all aspects of the following. My beltrán findings include: History is right lower quadrant abdominal pain times days. Seen by primary care physician for rule out appendicitis Exam is afebrile. Vital signs noted. Abdomen soft with mild tenderness to palpation right lower quadrant. No rebound or guarding. Negative peritoneal signs. Medical Decision Making check labs. Check CT scan. Negative for appendicitis. No acute process. Discharge. Other additions or changes: [None] Lab Data Attestation: I reviewed the patient's lab results. Labs: Laboratory Results - last 24 hr 05/23/22 05/23/22 05/23/22 16:30 16:30 16:30 WBC 10.0 RBC 5.43 Hgb 15.7 Hct 44.8 MCV 82.5 MCH 28.9 MCHC 35.0 RDW Std Deviation 39.2 RDW Coeff of George 13.2 Plt Count 205 MPV 10.6 Immature Gran % (Auto) 0.400 Neut % (Auto) 60.2 Lymph % (Auto) 28.5 [place] % (Auto) 9.7 Eos % (Auto) 0.8 Baso % (Auto) 0.4 Absolute Neuts (auto) 6.1 Absolute Lymphs (auto) 2.86 Nucleated RBC % 0 Sodium 136 Potassium 4.2 Chloride 105 Carbon Dioxide 27.0 Anion Gap 4 L BUN 15 Creatinine 1.19 Estim Creat Clear Calc 64.03 Est GFR (MDRD) Af Amer 81 Est GFR (MDRD) Non-Af 67 BUN/Creatinine Ratio 12.6 Glucose 98 Calcium 8.9 Urine Color Yellow Urine Clarity Clear Urine pH 6.0 Ur Specific [place] 1.020 Urine Protein 15 H Urine Glucose (UA) Normal Urine Ketones Negative Urine Occult Blood 10 H Urine Nitrite Negative Urine Bilirubin Negative Urine Urobilinogen 4 H Ur Leukocyte Esterase Negative Urine RBC 0 SEEN Urine WBC 0 SEEN Ur Squamous Epith Cells 0 SEEN Urine Bacteria 0 SEEN Urine Mucus 0 SEEN Radiography Diagnostic Testing: Clinical Impression(s) from Imaging Studies Abdomen/Pelvis CT 05/23/22 17:11 IMPRESSION: Mildly enlarged nonspecific fatty infiltrated liver. No evidence for small bowel obstruction or other acute abnormality. Electronically Signed: Lloyd Haddad MD at 17:37 EDT Reading Location ID and State: [facility] / [place] , Service support , Discharge Plan Triage Chief Complaint: Abd Pain ED Midlevel Provider: Kalyan Linares ED Provider: Gentry Walsh Dx/Rx/DC Orders Clinical Impression: Abdominal pain Instructions: Abdominal Pain Prescriptions: No Action omeprazole 20 MG capsule 20 mg PO DAILY aspirin 81 MG tablet,chewable 325 mg PO DAILY@0800 albuterol sulfate [Ventolin HFA] 1 INHALER inhaler 1 - 2 puff inhalation Q4H PRN PRN (Reason: Wheezing) topiramate 25 mg tablet 25 mg DAILY Label Comments: TAKE 1 TABLET BY MOUTH EVERYDAY AT BEDTIME vqtpqfrsgh-gwmzajgohmeld-qjkn [Esgic] 50-325-40 mg tablet 1 tab PO DAILY PRN PRN (Reason: Headache) Label Comments: TAKE 1 TABLET BY MOUTH EVERY 4 HOURS NEEDED lisinopril 10 mg tablet 10 mg DAILY Dulera 200-5 mcg/actuation HFA aerosol inhaler 2 puff INHALATION DAILY oxycodone-acetaminophen [Percocet] 5-325 mg tablet 1 tab PO Q6H 3 Days Qty: 12 0RF Primary Care Provider: Dilshad Chandler Referrals: Dilshad Chandler MD [Primary Care Provider] - Print Language: Armenian Disposition Disposition: Home, Self Care Discharge Date/Time: 05/23/22 18:17
[2022-05-23 17:06] LABS: Anion Gap 4 (5-15); BUN 15 mg/dL (7-18); BUN/Creat Ratio 12.6 RATIO (10-20); Calcium,Total 8.9 mg/dL (8.5-10.1); Chloride 105 mmol/L (98-107); Creatinine, Serum 1.19 mg/dL (0.70-1.30); EST Glomerular Filtration Rate 67 mL/min (>60); Est Glom Filt Rate - Afr Amer 81 mL/min (>60); Estimated Creatinine Clearance 64.03 ml/min; Glucose 98 mg/dL (74-106); Potassium 4.2 mmol/L (3.5-5.1); Sodium Level 136 mmol/L (136-145)
[2022-05-23 17:07] LABS: Color, Urine Yellow (Yellow); Glucose, Dipstick Normal (Normal); Ketone-Dipstick Negative (Negative); Leukocyte Esterase-Dipstick Negative /ul (Negative); Nitrite-Dipstick Negative (Negative); Occult Blood-Urine 10 /ul (Negative); Protein-Dipstick 15 mg/dl (Negative); Urine Bilirubin Dipstick Negative (Negative); Urine Clarity Clear (Clear); Urine Urobilinogen 4 mg/dl (Normal)
--- NOTE | 2022-05-23 17:11 | CT_ITS ---
STUDY: CT ABDOMEN AND PELVIS WITH CONTRAST REASON FOR EXAM: Male, 56 years old. RLQ abdominal pain RADIATION DOSAGE (If Supplied By Facility): CTDIvol = ( 14.78 ) mGy, DLP = ( 24363.63 ) mGycm TECHNIQUE: Transaxial images were obtained from the dome of the diaphragm to the symphysis pubis without oral contrast. IV 100mL Isovue-300 was administered. Sagittal and coronal images were reconstructed. Individualized dose optimization techniques were used for this CT. COMPARISON: None. FINDINGS: The visualized lung bases are unremarkable. The visualized portions of the heart are within normal limits. Mildly enlarged nonspecific fatty infiltrated liver without mass or bile duct dilatation. Normal gallbladder and extrahepatic biliary system. Normal spleen. Normal pancreas. Normal bilateral adrenal glands. Normal right kidney. Normal left kidney. Normal visualized stomach. Normal small intestine. Normal colon. No evidence for acute appendicitis. Normal abdominal aorta. Normal inferior vena cava. Normal retroperitoneum. Incompletely distended thick-walled bladder likely of no significance Normal abdominal wall. Lumbar spine demonstrates minor spondylosis. CT/Abdomen/Pelvis W IV Cont ONLY IMPRESSION: Mildly enlarged nonspecific fatty infiltrated liver. No evidence for small bowel obstruction or other acute abnormality. Electronically Signed: Lloyd Haddad MD at 17:37 EDT ,
[2022-05-23 18:15] VITALS: BP 116/86; PULSE 88; RESP 17; TEMP 36.7; O2SAT 99
[2022-05-23 18:16] VITALS: BP 116/86; PULSE 88; RESP 17; TEMP 36.7; O2SAT 99
== END 2022-05-23 18:17 | disposition home or self-care (01) ==
PROVIDERS: Nurse Practitioner; Emergency Provider Emergency Medicine; PCP Family Medicine; Visit Provider Emergency Medicine
DX: R10.813 Right lower quadrant abdominal tenderness (principal); I10 Essential (primary) hypertension; E78.5 Hyperlipidemia, unspecified; K76.0 Fatty (change of) liver, not elsewhere classified; K92.1 Melena; F17.210 Nicotine dependence, cigarettes, uncomplicated; J45.909 Unspecified asthma, uncomplicated; Z79.899 Other long term (current) drug therapy
CPT/HCPCS: 74177; 80048; 81001; 85025; 96360; 96361; 99283; J7030; Q9967; A4216

== ENCOUNTER 2023-05-28 11:47 | Observation (INO) | payer MEDICAID, SELFPAY ==
[2023-05-28] VITALS (10 sets, daily range): BP systolic 104–129; BP diastolic 70–85; PULSE 68–103; RESP 16–19; TEMP 36.8–37.6; O2SAT 94–99; BMI 29.7; BMI 29.9
--- NOTE | 2023-05-28 12:50 | CT_ITS ---
STUDY: CT ABDOMEN AND PELVIS WITH CONTRAST REASON FOR EXAM: Male, 57 years old. Abdominal pain -- IV PO Contrast RADIATION DOSAGE (If Supplied By Facility): CTDIvol = ( 13.23 ) mGy, DLP = ( 1055.05 ) mGycm TECHNIQUE: Transaxial images were obtained from the dome of the diaphragm to the symphysis pubis with oral contrast. Oral and amp; IV Gastrografin and amp; 100mL Isovue-300 was administered. Sagittal and coronal images were reconstructed. Individualized dose optimization techniques were used for this CT. COMPARISON: Comparison is made with prior study dated May 23, 2022. FINDINGS: The visualized lung bases are unremarkable. The visualized portions of the heart are within normal limits. There is decreased attenuation of the liver consistent with steatosis. Normal gallbladder and extrahepatic biliary system. Normal spleen. Normal pancreas. Normal bilateral adrenal glands. Normal right kidney. Normal left kidney. Normal visualized stomach. Normal small intestine. Soft tissue density is seen at the tip of the cecum adjacent to the orifice of the appendix. This most likely represents fecal material. A soft tissue mass cannot be excluded. There is a tubular, thick-walled appendix (>7mm), consistent with acute appendicitis. Mild degree of increased markings are seen in the surrounding peritoneal fat suggestive of a inflammatory change. Normal abdominal aorta. Normal inferior vena cava. Normal retroperitoneum. Normal urinary bladder. Normal abdominal wall. Normal osseous structures. CT/Abdomen/Pelvis WITH Contrast IMPRESSION: Findings in keeping with an uncomplicated acute appendicitis with focal soft tissue prominence at the tip of the cecum affecting the origin of the appendix. This most likely represents fecal material although a localized soft tissue mass cannot be excluded. Fatty infiltration of the liver. Electronically Signed: Shreyas Clements MD at 15:04 EDT ,
[2023-05-28] MEDS: Ondansetron 4 MG/2 ML Vial IV (13:09)
[2023-05-28] MEDS: 0.9% Normal Saline 1,000 ML 1000 ML IV (13:09)
[2023-05-28] MEDS: Morphine 4 MG/ML Syringe IV (13:10)
[2023-05-28 13:15] LABS: Bacteria 0 SEEN /hpf (None Seen); Mucous, Urine 0 SEEN /hpf (<or=2+); Red Blood Cells-Urine 0 SEEN /hpf (0-5); Squamous Epithelial Cells - UA 0 SEEN /hpf (0-5)
[2023-05-28 13:18] LABS: Absolute Lymphocyte Count 2.02 X10^3/uL (0.83-4.51); Absolute Neutrophil Count 16.1 X10^3/uL (2.0-7.7); Basophil# 0.04 X10^3/uL; Basophil% 0.2 % (0-1); Hematocrit 47.6 % (40-54); Hemoglobin 16.3 g/dL (13.0-16.5); Lymphocyte # 2.02 X10^3/ul (0.83-4.51); Mean Corp Hgb Conc 34.2 g/dL (32-36); Mean Corpuscular Hgb 29.3 pg (27.0-32.0); Mean Corpuscular Volume 85.6 fL (80-94); Mean Platelet Vol. 11.8 fl (6.2-12.0); Monocyte# 2.01 X10^3/uL; Monocyte% 9.9 % (0-10); NRBC Flagged by Analyzer 0 % (0-5); Neutrophil # 16.05 X10^3/uL (2.7-7.7); Neutrophil % 79.2 % (47-70); POSITIVE DIFFERENTIAL YES; Platelet Count 175 K/mm3 (150-450); RBC Distribution Width CV 13.2 % (11.6-14.6); RBC Distribution Width SD 41.4 fl (35.1-43.9); Red Blood Count 5.56 M/mm3 (4.6-6.2); White Blood Count 20.3 K/mm3 (4.4-11.0)
[2023-05-28 13:21] LABS: Differential Indicated SCAN CRITERIA MET
[2023-05-28 13:40] LABS: Color, Urine Yellow (Yellow); Glucose, Dipstick Normal (Normal); Ketone-Dipstick 5 mg/dl (Negative); Leukocyte Esterase-Dipstick 25 /ul (Negative); Nitrite-Dipstick Negative (Negative); Occult Blood-Urine Negative /ul (Negative); Protein-Dipstick 30 mg/dl (Negative); Urine Clarity Clear (Clear); Urine Urobilinogen 4 mg/dl (Normal); Urine pH 6.5 (5.0 - 8.0)
[2023-05-28 13:41] LABS: Urine Bilirubin Dipstick 1 mg/dL (Negative)
[2023-05-28 13:42] LABS: ALB/GLOB Ratio 0.9 RATIO (0.9-2.4); AST(SGOT) 18 U/L (15-37); Alanine Aminotransfer ALT/SGPT 34 U/L (16-61); Alkaline Phosphatase 70 U/L (45-117); Anion Gap 7 (5-15); BUN 17 mg/dL (7-18); BUN/Creat Ratio 13.6 RATIO (10-20); Calcium,Total 9.3 mg/dL (8.5-10.1); Chloride 106 mmol/L (98-107); Creatinine, Serum 1.25 mg/dL (0.70-1.30); EST Glomerular Filtration Rate 63 mL/min (>60); Est Glom Filt Rate - Afr Amer 76 mL/min (>60); Estimated Creatinine Clearance 58.13 ml/min; Globulin 4.4 g/dL (2.2-4.2); Glucose 116 mg/dL (74-106); Protein, Total 8.4 g/dL (6.4-8.2); Sodium Level 134 mmol/L (136-145)
[2023-05-28 13:57] LABS: White Blood Cells 0-5 SEEN /hpf (0-5)
[2023-05-28 14:03] LABS: Lactic Acid 0.9 mmol/L (0.4-1.9)
[2023-05-28 14:09] LABS: Differential Comment SCANNED
--- NOTE | 2023-05-28 15:46 | EDS_ITS ---
HPI HPI - GI History of Present Illness Chief Complaint: Abd Pain Informant: patient Abdominal Pain/Flank Pain Onset: Yesterday Context: Sudden Onset Timing: Continuous Quality: Aching and Stabbing Location: RLQ Worsened by: Food Relieved by: Nothing Nausea/Vomiting/Emesis GI Symptom: Positive for Nausea and Vomiting Quality: Positive for Nonbilious Diarrhea/Melena/Hematochezia GI Symptom: Negative for Diarrhea, Melena or Hematochezia Associated Symptoms Associated Symptoms: Positive for Dysuria; Negative for Frequency or Hematuria Narrative Narrative: Patient presents with right lower quadrant abdominal pain that began last night. Patient states it began rather suddenly. Patient states it began in the right lower quadrant. Patient describes his pain as aching but stabbing at times. Patient states it is worse whenever he eats. Patient states he began approxi mately 1-1/2 hours after eating dinner last night. Patient admits to some nausea and vomiting. Patient denies any diarrhea, melena, or hematochezia. Patient admits to some dysuria but denies any frequency or hematuria. Patient admits to some subjective chills and sweats. Patient denies any fevers. [facility] Medical History Asthma Hypertension Migraines TIA (transient ischemic attack) Home Medications omeprazole 20 mg capsule,delayed release 20 mg PO DAILY 08/05/13 [History Last Taken 01/30/16 06:00] aspirin 81 mg chewable tablet 325 mg PO DAILY@0800 02/04/15 [History Last Taken Unknown] albuterol sulfate 90 mcg/actuation aerosol inhaler (Ventolin HFA) 1 - 2 puff inhalation Q4H PRN PRN Wheezing 08/12/15 [History Last Taken Unknown] wedezsgpgz-aycsakcfejami-jcvpavoj 50 mg-325 mg-40 mg tablet (Esgic) 1 tab PO DAILY PRN PRN Headache 05/05/21 [History Last Taken Unknown] lisinopril 10 mg tablet 10 mg DAILY 05/05/21 [History Last Taken Unknown] mometasone-formoterol HFA 200 mcg-5 mcg/actuation aerosol inhaler (Dulera) 2 puff inhalation DAILY 05/05/21 [History Last Taken Unknown] topiramate 25 mg tablet 25 mg DAILY 05/05/21 [History Last Taken Unknown] oxycodone-acetaminophen 5 mg-325 mg tablet (Percocet) 1 tab PO Q6H 3 days #12 tabs 05/06/21 [Rx Last Taken Unknown] Allergy/AdvReac Type Severity Reaction Status Date / Time blackberry Allergy Anaphylaxis Verified 05/28/23 11:51 blueberry Allergy Anaphylaxis Verified 05/28/23 11:51 raspberry Allergy Anaphylaxis Verified 05/28/23 11:51 strawberry Allergy Anaphylaxis Verified 05/28/23 11:51 Surgical History Hx of cardiac catheterization Hx of cataract surgery Hx of sinus surgery Social History Smoking Status: Current every day smoker tobacco type: cigarettes ROS ROS ED Constitutional Constitutional ED: Reports chills, subjective and sweats; Denies fever(s) Eyes Eyes: Denies blurry vision or change in vision ENT ENT ED: Denies rhinorrhea or sore throat Cardiovascular Cardiovascular: Denies chest pain or palpitations Respiratory/Chest Respiratory/Chest: Denies cough or dyspnea Gastrointestinal Gastrointestinal: Reports abdominal pain, nausea and vomiting Genitourinary Genitourinary ED: Reports dysuria; Denies hematuria Musculoskeletal Musculoskeletal: Reports back pain; Denies neck pain Integumentary Denies abscess or rash Neurologic Neurologic: Reports headache(s); Denies weakness Allergic/Immunologic Allergic/Immunologic ED: Denies mouth swelling or urticaria EXAM Physical Exam Const Vital Signs: 05/28/23 11:48 Temperature 98.2 F Temperature Source Temporal Pulse Rate 103 H Respiratory Rate 16 Blood Pressure 117/74 Blood Pressure Mean 88 Pulse Ox 95 Oxygen Delivery Method Room Air Positive well nourished and well developed General Appearance ED: well developed HEENT Reports moist mucous membranes Neck supple and no JVD Resp normal respiratory effort and clear to auscultation bilaterally Cardio regular rate, regular rhythm and no murmurs GI normal to inspection, nondistended, normoactive bowel sounds Palpation: soft and tender LLQ, RLQ, McBurney's point, suprapubic and Rovsing's sign; Negative for guarding or rebound tenderness present Extremity normal to inspection General Extremety ED: Negative for edema or tenderness General Extremity: Negative for edema Neuro oriented x3, CN's II-XII intact bilaterally and no sensory deficits noted Sensorium / Orientation: alert Motor Exam: strength 5/5 throughout Psych mental status grossly normal Skin no rashes or lesions noted MDM MDM MDM Narrative Medical decision making narrative: Differential diagnosis includes ureteral calculus, appendicitis, mesenteric adenitis, urinary tract infection, colitis, and gastroenteritis. CBC will be obtained to assess for leukocytosis and anemia. Comprehensive metabolic profile will be obtained to assess for electrolyte abnormality, renal function, and hepatic function. Urinalysis will be obtained to assess for urinary tract infection. Lactate will be obtained to assess for bowel ischemia and sepsis. CT scan of the abdomen pelvis will be obtained to assess for appendicitis, bowel obstruction, and perforation. Lab Data Attestation: I reviewed the patient's lab results. Lab results narrative: CBC was reviewed. There is a leukocytosis of 20.3. There is an absolute neutrophil count of 16.1. The remainder was essentially within normal limits. Comprehensive metabolic profile was reviewed and was essentially within normal limits. Urinalysis was reviewed. There is no evidence of urinary tract infection or hematuria. Lactate was reviewed and was normal at 0.9. Labs: Laboratory Results - last 24 hr 05/28/23 12:35 WBC 20.3 H RBC 5.56 Hgb 16.3 Hct 47.6 MCV 85.6 MCH 29.3 MCHC 34.2 RDW Std Deviation 41.4 RDW Coeff of George 13.2 Plt Count 175 MPV 11.8 Immature Gran % (Auto) 0.700 Neut % (Auto) 79.2 H Lymph % (Auto) 10.0 L [place] % (Auto) 9.9 Eos % (Auto) 0.0 Baso % (Auto) 0.2 Absolute Neuts (auto) 16.1 H Absolute Lymphs (auto) 2.02 Nucleated RBC % 0 Differential Comment SCANNED Diff Path Review May foll Sodium 134 L Potassium 4.0 Chloride 106 Carbon Dioxide 21.0 Anion Gap 7 BUN 17 Creatinine 1.25 Estim Creat Clear Calc 58.13 Est GFR (MDRD) Af Amer 76 Est GFR (MDRD) Non-Af 63 BUN/Creatinine Ratio 13.6 Glucose 116 H Lactic Acid 0.9 Calcium 9.3 Total Bilirubin 0.70 AST 18 ALT 34 Alkaline Phosphatase 70 Total Protein 8.4 H Albumin 4.0 Globulin 4.4 H Albumin/Globulin Ratio 0.9 Urine Color Yellow Urine Clarity Clear Urine pH 6.5 Ur Specific [place] 1.010 Urine Protein 30 H Urine Glucose (UA) Normal Urine Ketones 5 H Urine Occult Blood Negative Urine Nitrite Negative Urine Bilirubin 1 H Urine Urobilinogen 4 H Ur Leukocyte Esterase 25 H Urine RBC 0 SEEN Urine WBC 0-5 SEEN Ur Squamous Epith Cells 0 SEEN Urine Bacteria 0 SEEN Urine Mucus 0 SEEN Radiography Diagnostic Testing: Clinical Impression(s) from Imaging Studies Abdomen/Pelvis CT 05/28/23 12:50 IMPRESSION: Findings in keeping with an uncomplicated acute appendicitis with focal soft tissue prominence at the tip of the cecum affecting the origin of the appendix. This most likely represents fecal material although a localized soft tissue mass cannot be excluded. Fatty infiltration of the liver. Electronically Signed: Shreyas Clements MD at 15:04 EDT , CT scan of the abdomen pelvis was obtained. There is acute appendicitis noted. There is no obstruction or perforation noted. There are some fatty infiltration of the liver. This was interpreted by the radiologist and was also independently reviewed by myself. Treatment and Re-Evaluation :: Patient was given IV fluids, morphine, and Zofran. Patient was given a dose of Zosyn. Patient was advised of his findings. Case was discussed with Dr. Turcios from general surgery. She will evaluate the patient and take patient to surgery. Patient understood and was agreeable with the plan. All questions were answered. Discharge Plan Triage Chief Complaint: Abd Pain ED Provider: Leonardo Carroll Dx/Rx/DC Orders Clinical Impression: Leukocytosis, Acute appendicitis Prescriptions: No Action omeprazole 20 MG capsule 20 mg PO DAILY aspirin 81 MG tablet,chewable 325 mg PO DAILY@0800 albuterol sulfate [Ventolin HFA] 1 INHALER inhaler 1 - 2 puff inhalation Q4H PRN PRN (Reason: Wheezing) topiramate 25 mg tablet 25 mg DAILY Patient Comments: TAKE 1 TABLET BY MOUTH EVERYDAY AT BEDTIME dijqpgqeku-cmlpsnqxtcjcu-ovdx [Esgic] 50-325-40 mg tablet 1 tab PO DAILY PRN PRN (Reason: Headache) Patient Comments: TAKE 1 TABLET BY MOUTH EVERY 4 HOURS NEEDED lisinopril 10 mg tablet 10 mg DAILY Dulera 200-5 mcg/actuation HFA aerosol inhaler 2 puff INHALATION DAILY oxycodone-acetaminophen [Percocet] 5-325 mg tablet 1 tab PO Q6H 3 Days Qty: 12 0RF Primary Care Provider: Dilshad Chandler Referrals: Dilshad Chandler MD [Primary Care Provider] - Disposition Disposition: Acute Care Hospital [facility]
--- NOTE | 2023-05-28 16:07 | PCM.HP.STD ---
[facility] - General General Date of Service: 05/28/23 HPI Narrative DAVID Patel, is a 57 M who presents to the ER due to right lower quadrant pain. Patient states last night pain started across his mid abdomen. Continued to get worse. Patient did have nausea and vomiting. Patient last had a couple sips of Mountain Dew this morning which she threw up. Patient white blood count 20 in the ER and CT abdomen pelvis consistent with acute appendicitis. Patient does have a past medical history of 4 cardiac stents in 2011 as well as history of stroke in 2011 as well. Patient is no longer on his full-strength aspirin. He does take migraine medicine which does not have any aspirin as needed. Patient had a colonoscopy a couple years ago and states everything was negative. [facility] Medical History Asthma Hypertension Migraines TIA (transient ischemic attack) Home Medications omeprazole 20 mg capsule,delayed release 20 mg PO DAILY ACID REFLUX 08/05/13 [History Last Taken 05/28/23] albuterol sulfate 90 mcg/actuation aerosol inhaler (Ventolin HFA) 1 - 2 puff inhalation Q4H PRN Wheezing 08/12/15 [History Last Taken 05/28/23] duulzlbzrw-ieajwyvgtdiha-cnsudlot 50 mg-325 mg-40 mg tablet (Esgic) 1 tab PO Q4H PRN HEADACHES 05/05/21 [History Last Taken 05/27/23] lisinopril 10 mg tablet 10 mg PO DAILY BLOOD PRESSURE 05/05/21 [History Last Taken 05/28/23] mometasone-formoterol HFA 200 mcg-5 mcg/actuation aerosol inhaler (Dulera) 2 puff inhalation DAILY SHORTNESS OF BREATH 05/05/21 [History Last Taken 05/28/23] albuterol sulfate 2.5 mg/3 mL (0.083 %) solution for nebulization 2.5 mg inhalation Q6H PRN shortness of breath 05/28/23 [History Last Taken 05/27/23] cyclobenzaprine 10 mg tablet 10 mg PO DAILY MUSCLE SPASMS 05/28/23 [History Last Taken 05/26/23] oxymetazoline 0.05 % nasal mist (Afrin (oxymetazoline)) 2 spray intranasal BID NASAL CONGESTION 05/28/23 [History Last Taken 05/26/23] topiramate 50 mg tablet 50 mg PO QHS HEADACHE 05/28/23 [History Last Taken 05/27/23] varenicline 1 mg tablet 1 mg PO DAILY 05/28/23 [History Last Taken Unknown] Allergy/AdvReac Type Severity Reaction Status Date / Time blackberry Allergy Anaphylaxis Verified 05/28/23 11:51 blueberry Allergy Anaphylaxis Verified 05/28/23 11:51 raspberry Allergy Anaphylaxis Verified 05/28/23 11:51 strawberry Allergy Anaphylaxis Verified 05/28/23 11:51 Surgical History Hx of cardiac catheterization Hx of cataract surgery Hx of sinus surgery Social History Smoking Status: Current every day smoker tobacco type: cigarettes Vital Signs Vital Signs Vital Signs: 05/28/23 11:48 05/28/23 16:00 Temperature 98.2 F 98.2 F Temperature Source Temporal Temporal Pulse Rate 103 H 81 Respiratory Rate 16 18 Blood Pressure 117/74 129/79 H Blood Pressure Mean 88 95 Blood Pressure Source Monitor Blood Pressure Position Semi-Fowlers Blood Pressure Location Right Arm Pulse Ox 95 94 Oxygen Delivery Method Room Air Room Air Weight Weight: 184 lb 9.6 oz Body Mass Index (BMI) 29.7 Physical Exam Const alert, oriented x3 and no apparent distress HEENT normocephalic and head/scalp atraumatic Resp normal respiratory effort Cardio regular rate GI soft to palpation; Negative for non-distended Palpation: tender RLQ and Rovsing's sign; Negative for guarding Extremity no clubbing, cyanosis or edema Neuro CN's II-XII intact bilaterally Psych mental status grossly normal Results Lab / Micro Data 05/28/23 12:35 05/28/23 12:35 Labs: Laboratory Results - last 24 hr 05/28/23 12:35: WBC 20.3 H, RBC 5.56, Hgb 16.3, Hct 47.6, MCV 85.6, MCH 29.3, MCHC 34.2, RDW Std Deviation 41.4, RDW Coeff of George 13.2, Plt Count 175, MPV 11.8, Immature Gran % (Auto) 0.700, Neut % (Auto) 79.2 H, Lymph % (Auto) 10.0 L, [place] % (Auto) 9.9, Eos % (Auto) 0.0, Baso % (Auto) 0.2, Absolute Neuts (auto) 16.1 H, Absolute Lymphs (auto) 2.02, Nucleated RBC % 0, Differential Comment SCANNED, Diff Path Review February foll, Sodium 134 L, Potassium 4.0, Chloride 106, Carbon Dioxide 21.0, Anion Gap 7, BUN 17, Creatinine 1.25, Estim Creat Clear Calc 58.13, Est GFR (MDRD) Af Amer 76, Est GFR (MDRD) Non-Af 63, BUN/Creatinine Ratio 13.6, Glucose 116 H, Lactic Acid 0.9, Calcium 9.3, Total Bilirubin 0.70, AST 18, ALT 34, Alkaline Phosphatase 70, Total Protein 8.4 H, Albumin 4.0, Globulin 4.4 H, Albumin/Globulin Ratio 0.9, Urine Color Yellow, Urine Clarity Clear, Urine pH 6.5, Ur Specific [place] 1.010, Urine Protein 30 H, Urine Glucose (UA) Normal, Urine Ketones 5 H, Urine Occult Blood Negative, Urine Nitrite Negative, Urine Bilirubin 1 H, Urine Urobilinogen 4 H, Ur Leukocyte Esterase 25 H, Urine RBC 0 SEEN, Urine WBC 0-5 SEEN, Ur Squamous Epith Cells 0 SEEN, Urine Bacteria 0 SEEN, Urine Mucus 0 SEEN Radiology Impression Abdomen/Pelvis CT 05/28/23 12:50 IMPRESSION: Findings in keeping with an uncomplicated acute appendicitis with focal soft tissue prominence at the tip of the cecum affecting the origin of the appendix. This most likely represents fecal material although a localized soft tissue mass cannot be excluded. Fatty infiltration of the liver. Electronically Signed: Shreyas Clements MD at 15:04 EDT , Assessment & Plan Assessment/Plan (1) Acute appendicitis: PLAN: Plan 1. Discussed procedure laparoscopic appendectomy, possible open along with the risk but not limited to bleeding, infection/abscess, injury to another organ (small bowel, colon, etc.), adhesion, hernia at incision sites, and anesthesia. Patient and his had no further question this time. Leidy Turcios M.D. Pager: [phone] [facility] [address] [place] [address], [address] [place] [address] Office: [phone]
--- NOTE | 2023-05-28 16:37 | NURSING ---
Surgeon at bedside. Patient aware of treatment plan. States he wants to go outside and smoke a cigarette, explained that he is not allowed to leave with IV intact. Patient laughing out loud and states he wants to smoke.
--- NOTE | 2023-05-28 18:20 | APP_PTH ---
PATIENT: DAVID COOK Jr. LOC: MS3 U#:[id number] AGE/SX: 57/M [place] [facility] [place]05/28/[address]: Dr. Leidy Turcios MD : [id number] BED: 1 DIS: 05/28/2023 SPEC #: [id number] RECD: 05/29/23 08:17 STATUS: CYNTHIA WAYLON #: [id number] EDDY: 05/28/23 18:[address]: Leidy Turcios DEPT: SURGICAL PATHOLOGY RECD BY: Dayanna Recinos ENTERED: 05/29/23 11:52 SP TYPE: APPENDIX OTHR DR: Dr. Dilshad Chandler MD Tissues: Appendix, NOS Procedures: Surgery Specimen Level III HEADER OPERATION: Laparoscopic appendectomy PRE-OP DIAGNOSIS: Acute appendicitis TISSUE SUBMITTED: Appendix MICROSCOPIC DIAGNOSIS Appendix, appendectomy: Acute appendicitis and periappendicitis. DANIEL:martine 05/30/2023 MICROSCOPIC DESCRIPTION Slides are reviewed. GROSS DESCRIPTION Received in fixative is one container labeled with the patient's name and designated appendix. The specimen consists of an appendix measuring 8.0 cm in length and up to 0.7 cm in diameter. The attached periappendiceal adipose tissue measures up to 1.7 cm in width. The serosa is congested. No obvious perforation is identified. The lumen is filled with fecal material. No fecalith is identified. Inbound Telemarketer sections are submitted in one cassette. / SJ:martine 05/29/2023 TC:2 CPT: 30604
[2023-05-28] MEDS: Bupivacaine Mpf 0.5% 30 ML VIAL (19:20)
--- NOTE | 2023-05-28 19:31 | OP.PCM_ITS ---
Report of Operation Date of Procedure: 05/28/23 Pre-Operative Diagnosis: Acute appendicitis Post-Operative Diagnosis: Same Surgery/Procedure Performed:: Laparoscopic appendectomy Surgeon: Leidy Turcios Type of Anesthesia: General/Supplemental Anesthesiologist: Leonardo Curtis Special Medications: Zosyn 4.5 g IV x1 given in ER for acute appendicitis Specimen's removed: Appendix Estimated Blood Loss (mL): < 10 cc Description of Procedure: Indications: 57-year-old female presented to the ER with new right lower quadrant pain yesterday. On workup he was found to have acute appendicitis on CT and a leukocytosis of 20. Patient was started on antibiotics in the ER for acute appendicitis-Zosyn 4.5 g IV x1 Description of the procedure: The patient was placed on operating table in supine position. General anesthesia was induced. A timeout was completed verifying correct patient, procedure, position and special equipment prior to beginning procedure. Abdomen was prepped and draped in usual sterile fashion. Incision was made in the natural skin line above the umbilicus with a 15 blade s calpel. The fascia was elevated and incised. Entry into the peritoneum was confirmed visually and no bowel was noted in the vicinity of the incision. The Mary trocar was placed under direct vision. Abdomen insufflated with a pressure of 12-15 mmHg. Patient tolerated insertion well. The scope was inserted and the abdomen inspected. No injuries from initial trocar placement were noted. Minimal amount of fluid was seen in the right lower quadrant. An direct visualization 2 -5 mm trocars were placed one above the symphysis pubis and below the hairline and one in the left lower quadrant lateral to the rectus muscle. Care is taken to avoid injury to the bladder and inferior epigastric vessels. The table was placed in Trendelenburg position with the right side elevated. The appendix was grasped with atraumatic grasper and elevated. It was noted to be inflamed. A window was developed in the mesoappendix at the point between the base of the appendix and the cecum. An endoscopic 45 mm linear cutting stapler blue load was then used to divide and staple the base of the appendix. Enseal was used to divide the mesoappendix The appendix was withdrawn into the Mary trocar after being placed endoscopically retrieval bag. Appendix was sent to pathology. The appendiceal stump was then irrigated and hemostasis was assured. Fluid was suctioned no other pathology was identified. Secondary trochars were removed under direct visualization. No bleeding was noted trocar sites. The laparoscope withdrawn and the umbilical trocar removed. The abdomen was allowed to collapse. Local anesthesia of 20 mL of 0.5% Marcaine was used at the incision sites. The umbilical trocar site was closed with the rcvsjx-fn-deavw 0 Vicryl suture. The skin was closed using sutures of 4-0 Monocryl and Steri-Strips. The patient was extubated. The patient tolerated the procedure well and was taken to the postanesthesia care unit in satisfactory condition. Complications none
--- NOTE | 2023-05-28 19:33 | DCINST_ITS ---
Discharge Instructions Diet Discharge Diet: Light diet - advance as tolerated Activity Discharge Activity: May Not Drive (while taking narcotic pain medications.) May shower in (days): 1 Lifting Restrictions: no lifting >20 lbs x 2 wks, no strenuous exercise for 4 wks Dressing / Incision Call your doctor if your incision/area has: Continuous Slow Oozing, Sudden Increased Bleeding, Increased Pain/ Swelling, Increased Redness, Foul Smelling Discharge and Swelling at the incision site Call your doctor if you observe: Fever of 101 or Higher Remove Dressing in: 2 days Cleanse incision/area with: Soap & Water Additional Dressing/Incision Instructions:: Steri-Strips will fall off in 7 to 10 days, if they do not fall off okay to remove after 10 days. Follow Up Care Please Follow Up With: Leidy Turcios MD When: Call the office for a follow-up appointment 2 weeks; after 5 PM and on the weekends call [phone] with any concerns. Test Results: Test results from this visit will be discussed in further detail at your follow- up appointment, if applicable. Discharge Plan Admission Admit Date/Time: 05/28/23 17:00 Attending Provider: Leidy Turcios Primary Care Provider: Dilshad Chandler Discharge Orders/Prescriptions Prescriptions: New oxycodone-acetaminophen 5-325 mg tablet 1 - 2 tab PO Q6H PRN (Reason: pain) 3 Days Qty: 14 0RF Continued omeprazole 20 MG capsule 20 mg PO DAILY albuterol sulfate [Ventolin HFA] 1 INHALER inhaler 1 - 2 puff inhalation Q4H PRN (Reason: Wheezing) kbbnjqyqoh-lfkwjwihdzxyb-ksfs [Esgic] 50-325-40 mg tablet 1 tab PO Q4H PRN (Reason: HEADACHES) lisinopril 10 mg tablet 10 mg PO DAILY Dulera 200-5 mcg/actuation HFA aerosol inhaler 2 puff INHALATION DAILY topiramate 50 mg tablet 50 mg PO QHS varenicline 1 mg tablet 1 mg PO DAILY albuterol sulfate 2.5 mg /3 mL (0.083 %) solution for nebulization 2.5 mg inhalation Q6H PRN (Reason: shortness of breath) Patient Comments: USE 3 ML VIA NEBULIZER EVERY 6 HOURS NEEDED. USE OVER 5-15MINUTES. cyclobenzaprine 10 mg tablet 10 mg PO DAILY Afrin (oxymetazoline) 0.05 % mist 2 spray intranasal BID Referrals / Follow Up: Dilshad Chandler MD [Primary Care Provider] - Disposition Disposition (needs filled in before D/C Order can be placed): Home, Self Care
--- NOTE | 2023-05-28 19:56 | EKG12_ITS ---
Test Reason : POST OP Blood Pressure : / mmHG Vent. Rate : 071 BPM Atrial Rate : 071 BPM P-R Int : 146 ms QRS Dur : 092 ms QT Int : 378 ms P-R-T Axes : 072 042 032 degrees QTc Int : 410 ms Normal sinus rhythm Normal ECG When compared with ECG of 25-JAN-2016 09:47, No significant change was found Confirmed by TESS HERNANDEZ, ELIZABETH ([id number]), scientific editor ALEX TOMLINSON ([id number]) on 05/30/2023 10:32:59 AM Referred By: ERIKA Confirmed By:ELIZABETH PULIDO MD
[2023-05-28 20:38] LABS: Troponin-I HS 5 pg/mL (3.0-78.0)
[2023-05-28] MEDS: Acetaminophen 325 MG Tablet 650 MG PO (22:00)
[2023-05-30 09:55] LABS: Pathologist Review Reviewed
== END 2023-05-28 22:30 | disposition home or self-care (01) ==
LOC: ED 17:56 → SDC 17:56 → ACINP 17:58 → SDC 18:02 → ACINP 19:36 → MS3 05-29 10:01
PROVIDERS: Anesthesiology; Admitting Provider Surgery; Emergency Provider Emergency Medicine; PCP Family Medicine; Visit Provider Surgery
PROC: 0DTJ4ZZ Resection of Appendix, Percutaneous Endoscopic Approach (ICD-10-PCS; CPT 44970; principal; 2023-05-28 18:00)
DX: K35.80 Unspecified acute appendicitis (principal); F17.210 Nicotine dependence, cigarettes, uncomplicated; I10 Essential (primary) hypertension; R30.0 Dysuria; Z79.51 Long term (current) use of inhaled steroids; G43.909 Migraine, unspecified, not intractable, without status migrainosus; J45.909 Unspecified asthma, uncomplicated; Z79.82 Long term (current) use of aspirin; Z79.899 Other long term (current) drug therapy; K21.9 Gastro-esophageal reflux disease without esophagitis; Z86.718 Personal history of other venous thrombosis and embolism; Z86.73 Personal history of transient ischemic attack (TIA), and cerebral infarction without residual deficits
CPT/HCPCS: 44970; 00840; C1760; 36415; 74177; 80053; 81001; 83605; 84484; 85025; 88304; 93005; 96365; 96375; 99285; J7030; Q9967; A4216; J2405

== ENCOUNTER 2023-06-08 16:38 | Emergency (ER) | payer MEDICAID, SELFPAY ==
[2023-06-08 16:39] VITALS: BP 130/96; PULSE 97; RESP 18; TEMP 36.8; O2SAT 97; BMI 29.4
--- NOTE | 2023-06-08 16:58 | EDS_ITS ---
HPI <CARLITOS Mccoy - Last Filed: 06/08/23 21:35> History of Present Illness Chief Complaint: Laceration Narrative Narrative: Patient presenting today with a laceration to the distal aspect of his right third finger that he got earlier today while he was unloading a car and cut his finger on part of the bumper. He reports that the bumper was rusted and he thinks he may have a piece of metal stuck in his finger. He is unsure of his last tetanus update. He did try to wash his finger out right after it happened. He denies any other injury. He is not on any blood thinners. PFS <CARLITOS Mccoy - Last Filed: 06/08/23 21:35> [facility] Medical History Asthma COPD (chronic obstructive pulmonary disease) CPAP (continuous positive airway pressure) dependence Hypertension Migraines Sleep apnea Smoker TIA (transient ischemic attack) Home Medications omeprazole 20 mg capsule,delayed release 20 mg PO DAILY ACID REFLUX 08/05/13 [History Last Taken 05/28/23] albuterol sulfate 90 mcg/actuation aerosol inhaler (Ventolin HFA) 1 - 2 puff inhalation Q4H PRN Wheezing 08/12/15 [History Last Taken 05/28/23] fiouyivnqt-stlkzjlpctaxe-mqrfmzum 50 mg-325 mg-40 mg tablet (Esgic) 1 tab PO Q4H PRN HEADACHES 05/05/21 [History Last Taken 05/27/23] lisinopril 10 mg tablet 10 mg PO DAILY BLOOD PRESSURE 05/05/21 [History Last Taken 05/28/23] mometasone-formoterol HFA 200 mcg-5 mcg/actuation aerosol inhaler (Dulera) 2 puff inhalation DAILY SHORTNESS OF BREATH 05/05/21 [History Last Taken 05/28/23] albuterol sulfate 2.5 mg/3 mL (0.083 %) solution for nebulization 2.5 mg inhalation Q6H PRN shortness of breath 05/28/23 [History Last Taken 05/27/23] cyclobenzaprine 10 mg tablet 10 mg PO DAILY MUSCLE SPASMS 05/28/23 [History Last Taken 05/26/23] oxycodone-acetaminophen 5 mg-325 mg tablet 1 - 2 tab PO Q6H PRN pain 3 days #14 tabs 05/28/23 [Rx Last Taken Unknown] oxymetazoline 0.05 % nasal mist (Afrin (oxymetazoline)) 2 spray intranasal BID NASAL CONGESTION 05/28/23 [History Last Taken 05/26/23] topiramate 50 mg tablet 50 mg PO QHS HEADACHE 05/28/23 [History Last Taken 05/27/23] varenicline 1 mg tablet 1 mg PO DAILY 05/28/23 [History Last Taken Unknown] Allergy/AdvReac Type Severity Reaction Status Date / Time raspberry Allergy Anaphylaxis Verified 06/08/23 16:39 strawberry Allergy Anaphylaxis Verified 06/08/23 16:39 Surgical History Hx of cardiac catheterization Hx of cataract surgery Hx of sinus surgery Social History Smoking Status: Current every day smoker tobacco type: cigarettes ROS <CARLITOS Mccoy - Last Filed: 06/08/23 21:35> ROS ED Constitutional Constitutional ED: Denies chills or fever(s) Cardiovascular Cardiovascular: Denies chest pain or palpitations Respiratory/Chest Respiratory/Chest: Denies cough or dyspnea Gastrointestinal Gastrointestinal: Denies abdominal pain, nausea or vomiting Musculoskeletal Musculoskeletal: Denies arthralgias or myalgias Integumentary Reports laceration Neurologic Neurologic: Denies weakness EXAM <CARLITOS Mccoy - Last Filed: 06/08/23 21:35> Physical Exam Const Vital Signs: 06/08/23 16:39 Temperature 98.3 F Temperature Source Temporal Pulse Rate 97 Respiratory Rate 18 Blood Pressure 130/96 H Blood Pressure Mean 107 Pulse Ox 97 Oxygen Delivery Method Room Air Positive well nourished, well developed and no apparent distress General Appearance ED: well developed HEENT Reports normocephalic and head/scalp atraumatic Mouth ED: Yes moist mucous membranes normal Eyes PERRL and EOMs intact bilaterally Neck full ROM and supple Chest Wall inspection of chest normal Resp normal respiratory effort and clear to auscultation bilaterally Cardio regular rate and regular rhythm GI soft to palpation, non-tender, non-distended and no masses Back/Spine normal ROM and normal to inspection Extremity normal to inspection and full ROM Extremity Narrative: Radial pulses 2+ and equal bilaterally, good capillary refill, sensation intact. 3 linear superficial laceration to the distal aspect of the right third finger, 1 cm full-thickness laceration to the distal aspect of the right third finger Small abrasion to the left elbow. Neuro oriented x3, CN's II-XII intact bilaterally, moves all extremities, no focal motor deficits and no sensory deficits noted Sensorium / Orientation: awake and alert Psych mental status grossly normal and thought process normal <Dr. Elmo Ji MD - Last Filed: 06/08/23 17:47> Physical Exam Const Vital Signs: 06/08/23 16:39 Temperature 98.3 F Temperature Source Temporal Pulse Rate 97 Respiratory Rate 18 Blood Pressure 130/96 H Blood Pressure Mean 107 Pulse Ox 97 Oxygen Delivery Method Room Air PROC <CARLITOS Mccoy - Last Filed: 06/08/23 21:35> Procedures Lacerations Laceration: Length: 1 cm Depth: Sub Q Shape: Linear Laceration repair: Digital block, Irrigated, Lidocaine, Skin sutures and Wound explored Irrigated (ml): 600 Number of Sutures/[place]: 1 Suture Information: Ethilon, Simple and 5-0 MDM <CARLITOS Mccoy - Last Filed: 06/08/23 21:35> [facility] Narrative Medical decision making narrative: Patient presenting today with multiple lacerations to the distal aspect of his right third finger that occurred earlier today while unloading a car and cutting it on the bumper. 3 of the lacerations are superficial and cannot be sutured, 1 is a full-thickness laceration and will be sutured. He is well-appearing and in no distress. Tetanus will be updated here. His finger will be soaked in soapy water. He is concerned that there is a foreign body in his finger, x-ray will be obtained to rule this out. X-ray does suggest subcutaneous foreign bodies, on further exploration it looks like there is rust in all of patient's lacerations, including the superficial lacerations. Digital block was performed, I have copiously irrigated patient's finger and explored with forceps removing visible pieces of rust. Suture was placed to the full-thickness lacera tion. Left elbow abrasion was cleaned and bandaged. Patient was bandaged with bacitracin ointment and has been given strict return instructions. He has been educated on signs of infection to look out for, he is to have suture removed in 7 days. He will be discharged home in stable condition and is comfortable with plan. I have personally performed a face to face assessment of the patient and have reviewed the DANIEL Note. I performed a substantive portion of the visit including all aspects of the following. My beltrán findings include: History is 57-year-old male injured his right long finger causing several lacerations. Tetanus not up-to-date. Will need suture repair. Patient's concern is a foreign body. X-ray will be obtained. Exam is [57-year-old male vital signs stable afebrile. H EENT exam unremarkable. Neck nontender. Lungs clear. Heart regular rhythm. Chest wall mild tenderness right upper lateral mid axillary line rib cage. No ecchymosis or bruising. No subcu air crepitus. Abdomen soft. Back nontender. Moves all 4 extremities. Neurovascular intact. Right long finger along the radial palmar side there is several lacerations. Full flexion extension intact. Mild bleeding. No obvious foreign body. No infection.] Medical Decision Making [right long finger will be x-rayed to rule out possible foreign body which I do not think is present. Tetanus updated. Suture repair of the finger. Patient most likely has a rib contusion on the right he did not want any imaging of that.] Other additions or changes: [None] Radiography X-Ray: Read by ED Physician and Read by Radiologist Diagnostic Testing: Clinical Impression(s) from Imaging Studies Finger X-Ray 06/08/23 17:34 IMPRESSION: Subcutaneous foreign bodies as above. No fracture noted. Electronically Signed: Roger Farias MD at 18:52 EDT , <Dr. Elmo Ji MD - Last Filed: 06/08/23 17:47> [facility] Narrative Medical decision making narrative: Patient presenting today with a laceration to the distal aspect of his right third finger that earlier today while unloading a car and cutting it on the bumper. He is well-appearing and in no stress. Tetanus will be updated here. His finger will be soaked in soapy water. He is concerned that there is a foreign body in his finger, x-ray will be obtained to rule this out. He has two lacerations to his finger, one is superficial and cannot be sutured. I have personally performed a face to face assessment of the patient and have reviewed the DANIEL Note. I performed a substantive portion of the visit including all aspects of the following. My beltrán findings include: History is 57-year-old male injured his right long finger causing several lacerations. Tetanus not up-to-date. Will need suture repair. Patient's concern is a foreign body. X-ray will be obtained. Exam is [57-year-old male vital signs stable afebrile. H EENT exam unremarkable. Neck nontender. Lungs clear. Heart regular rhythm. Chest wall mild tenderness right upper lateral mid axillary line rib cage. No ecchymosis or bruising. No subcu air crepitus. Abdomen soft. Back nontender. Moves all 4 extremities. Neurovascular intact. Right long finger along the radial palmar side there is several lacerations. Full flexion extension intact. Mild bleeding. No obvious foreign body. No infection.] Medical Decision Making [right long finger will be x-rayed to rule out possible foreign body which I do not think is present. Tetanus updated. Suture repair of the finger. Patient most likely has a rib contusion on the right he did not want any imaging of that.] Other additions or changes: [None] History & Record Review Discussion w/independent historian: Patient and Family Radiography Diagnostic Testing: Clinical Impression(s) from Imaging Studies Finger X-Ray 06/08/23 17:34 IMPRESSION: Subcutaneous foreign bodies as above. No fracture noted. Electronically Signed: Roger Farias MD at 18:52 EDT , Finger x-ray, 3 views did show a density that may be rust. No fracture. Interpreted by myself Discharge Plan Triage Chief Complaint: Laceration ED Midlevel Provider: Raisa Fierro ED Provider: Elmo Ji Dx/Rx/DC Orders Clinical Impression: Laceration of finger of right hand with foreign body Instructions: ED Laceration, Hand: All Closures Prescriptions: No Action omeprazole 20 MG capsule 20 mg PO DAILY albuterol sulfate [Ventolin HFA] 1 INHALER inhaler 1 - 2 puff inhalation Q4H PRN (Reason: Wheezing) igckvcjihp-yfurakemmtcyu-hhzh [Esgic] 50-325-40 mg tablet 1 tab PO Q4H PRN (Reason: HEADACHES) lisinopril 10 mg tablet 10 mg PO DAILY Dulera 200-5 mcg/actuation HFA aerosol inhaler 2 puff INHALATION DAILY topiramate 50 mg tablet 50 mg PO QHS varenicline 1 mg tablet 1 mg PO DAILY albuterol sulfate 2.5 mg /3 mL (0.083 %) solution for nebulization 2.5 mg inhalation Q6H PRN (Reason: shortness of breath) Patient Comments: USE 3 ML VIA NEBULIZER EVERY 6 HOURS NEEDED. USE OVER 5-15MINUTES. cyclobenzaprine 10 mg tablet 10 mg PO DAILY Afrin (oxymetazoline) 0.05 % mist 2 spray intranasal BID oxycodone-acetaminophen 5-325 mg tablet 1 - 2 tab PO Q6H PRN (Reason: pain) 3 Days Qty: 14 0RF Primary Care Provider: Dilshad Chandler Referrals: Dilshad Chandler MD [Primary Care Provider] - 7 Days for suture removal Activity Restrictions/Additional Instructions: Have sutures removed in 7 days, keep area clean and covered with antibiotic ointment and a bandage. Please return for any signs of infection such as redness, swelling, pus-like discharge, or fever Disposition Disposition: Home, Self Care Discharge Date/Time: 06/08/23 18:52
--- NOTE | 2023-06-08 17:34 | RAD_ITS ---
STUDY: X-RAY - RIGHT HAND, ATTENTION MIDDLE FINGER REASON FOR EXAM: Male, 57 years old. foreign body -- 3rd finger TECHNIQUE: 3 view(s) of the finger were obtained. COMPARISON: None. FINDINGS: Normal metacarpal head. Normal metacarpophalangeal joint. Normal proximal phalanx. Normal middle phalanx. Normal middle finger. Phalanx. Normal proximal interphalangeal joint. Normal distal interphalangeal joint. Subcutaneous foreign bodies in the lower aspect RAD/Finger(s) Min 2 Views IMPRESSION: Subcutaneous foreign bodies as above. No fracture noted. Electronically Signed: Roger Farias MD at 18:52 EDT ,
[2023-06-08] MEDS: Diphth,Pertuss(Acell),Tet Vac 0.5 ML Vial IM (17:44)
[2023-06-08] MEDS: Lidocaine 1% (20 ml mdv) 20 ML Vial 10 ML INFILT (17:53)
== END 2023-06-08 18:52 | disposition home or self-care (01) ==
PROVIDERS: Emergency Provider Emergency Medicine; PCP Family Medicine; Visit Provider Emergency Medicine
DX: S61.222A Laceration with foreign body of right middle finger without damage to nail, initial encounter (principal); J44.9 Chronic obstructive pulmonary disease, unspecified; F17.210 Nicotine dependence, cigarettes, uncomplicated; S50.312A Abrasion of left elbow, initial encounter; Z23 Encounter for immunization; I10 Essential (primary) hypertension; W26.8XXA Contact with other sharp object(s), not elsewhere classified, initial encounter
CPT/HCPCS: 12041; 73140; 90471; 90715; 99282

== ENCOUNTER 2023-08-10 23:17 | Emergency (ER) | payer MEDICAID, SELFPAY ==
[2023-08-10 23:18] VITALS: BP 158/91; PULSE 84; RESP 19; TEMP 36.7; O2SAT 98; BMI 32.0
--- NOTE | 2023-08-10 23:42 | RAD_ITS ---
INDICATION: chest pain EXAMINATION/TECHNIQUE: X-RAY - XR Chest 2 Views COMPARISON: 09/02/2021 FINDINGS: LINES/DEVICES: None. LUNGS: No consolidation. No pneumothorax. MEDIASTINUM: Unremarkable. CARDIAC SILHOUETTE: Not enlarged. BONES AND SOFT TISSUES: No acute abnormalities. RAD/Chest PA and Lateral IMPRESSION: No evidence of active intrathoracic disease. Electronically Signed: Katelyn Shi MD at 0:45 EDT ,
[2023-08-10 23:56] LABS: Bacteria 0 SEEN /hpf (None Seen); Mucous, Urine 0 SEEN /hpf (<or=2+); Red Blood Cells-Urine 0 SEEN /hpf (0-5); Squamous Epithelial Cells - UA 0 SEEN /hpf (0-5); White Blood Cells 0 SEEN /hpf (0-5)
[2023-08-10] MEDS: Ondansetron 4 MG/2 ML Vial IV (23:59)
[2023-08-11] LABS: Color, Urine Yellow (Yellow); Glucose, Dipstick Normal (Normal); Ketone-Dipstick Negative (Negative); Leukocyte Esterase-Dipstick 25 /ul (Negative); Nitrite-Dipstick Negative (Negative); Occult Blood-Urine Negative /ul (Negative); Protein-Dipstick 15 mg/dl (Negative); Urine Bilirubin Dipstick Negative (Negative); Urine Clarity Clear (Clear); Urine Urobilinogen 1 mg/dl (Normal); Urine pH 6.5 (5.0 - 8.0)
[2023-08-11] MEDS: Morphine 4 MG/ML Syringe IV
[2023-08-11] MEDS: Aspirin 325 MG Tablet PO (00:01)
[2023-08-11 00:08] LABS: Absolute Lymphocyte Count 3.94 X10^3/uL (0.83-4.51); Absolute Neutrophil Count 5.5 X10^3/uL (2.0-7.7); Basophil# 0.04 X10^3/uL; Basophil% 0.4 % (0-1); Eosinophil# 0.16 X10^3/uL; Eosinophils% 1.5 % (0-5); Hemoglobin 15.7 g/dL (13.0-16.5); Lymphocyte # 3.94 X10^3/ul (0.83-4.51); Lymphocyte % 36.7 % (19-41); Mean Corp Hgb Conc 34.1 g/dL (32-36); Mean Corpuscular Hgb 29.2 pg (27.0-32.0); Mean Corpuscular Volume 85.7 fL (80-94); Mean Platelet Vol. 11.5 fl (6.2-12.0); Monocyte# 1.02 X10^3/uL; Monocyte% 9.5 % (0-10); NRBC Flagged by Analyzer 0 % (0-5); Neutrophil # 5.51 X10^3/uL (2.7-7.7); Neutrophil % 51.2 % (47-70); Platelet Count 176 K/mm3 (150-450); RBC Distribution Width CV 13.6 % (11.6-14.6); Red Blood Count 5.37 M/mm3 (4.6-6.2); White Blood Count 10.7 K/mm3 (4.4-11.0)
[2023-08-11 00:10] LABS: D-Dimer Quantitative (DVT/PE) 0.33 FEU/ug/m (0.27-0.49)
[2023-08-11 00:15] VITALS: BP 146/69
[2023-08-11 00:20] VITALS: PULSE 76; RESP 20
[2023-08-11 00:52] LABS: AST(SGOT) 33 U/L (15-37); Alanine Aminotransfer ALT/SGPT 44 U/L (16-61); Albumin, Serum 3.6 g/dL (3.2-5.0); Alkaline Phosphatase 78 U/L (45-117); Anion Gap 9 (5-15); BUN 12 mg/dL (7-18); BUN/Creat Ratio 9.4 RATIO (10-20); Bilirubin, Direct < 0.05 mg/dL (0.00-0.30); Calcium,Total 8.6 mg/dL (8.5-10.1); Chloride 108 mmol/L (98-107); Creatinine, Serum 1.28 mg/dL (0.70-1.30); EST Glomerular Filtration Rate 61 mL/min (>60); Est Glom Filt Rate - Afr Amer 74 mL/min (>60); Estimated Creatinine Clearance 58.81 ml/min; Globulin 4.2 g/dL (2.2-4.2); Glucose 121 mg/dL (74-106); Lipase 109 U/L (13-75); Potassium 3.8 mmol/L (3.5-5.1); Protein, Total 7.8 g/dL (6.4-8.2); Sodium Level 139 mmol/L (136-145); Troponin-I HS 8 pg/mL (3.0-78.0)
[2023-08-11 01:00] VITALS: BP 127/95; PULSE 72; RESP 16; O2SAT 95
--- NOTE | 2023-08-11 01:16 | EKG12_ITS ---
Test Reason : CP Blood Pressure : / mmHG Vent. Rate : 082 BPM Atrial Rate : 082 BPM P-R Int : 138 ms QRS Dur : 090 ms QT Int : 354 ms P-R-T Axes : 077 049 057 degrees QTc Int : 413 ms Normal sinus rhythm Normal ECG Confirmed by ELIZABETH PULIDO MD ([id number]), multimedia editor EMERALD LARES ([id number]) on 08/14/2023 11:30:35 AM Referred By: GILBERT Confirmed By:ELIZABETH PULIDO MD
--- NOTE | 2023-08-11 01:29 | CT_ITS ---
EXAM: CT Abdomen And Pelvis W/ Contrast Injection HISTORY: abd pain UPPER ABDOMEN PAIN,ELEVATED LIPASE HX:HLD,HTN,COPD,APPENDECTOMY TECHNIQUE: Routine protocol CT abdomen pelvis. IV Contrast: IV 100mL Isovue-370 . Oral Contrast: without. Sagittal and coronal images were reconstructed. RADIATION DOSAGE (If Supplied By Facility): CTDIvol = ( 20.28 ) mGy, DLP = ( 1173.38 ) mGycm Individualized dose optimization techniques were used for this CT. COMPARISON: CT abdomen and pelvis 05/28/2023. LIMITATIONS: None. FINDINGS: LOWER CHEST: Lung bases are clear. LIVER: Mild fatty infiltration. GALLBLADDER/BILE DUCTS: Unremarkable. PANCREAS: Unremarkable. SPLEEN: Unremarkable. ADRENAL GLANDS: Unremarkable. KIDNEYS / URETERS: Unremarkable. BOWEL / MESENTERY: Mildly distended small bowel in the midabdomen with prominent folds. No bowel obstruction. APPENDIX: Surgically absent. PERITONEUM: No free air. No free fluid. VESSELS: Abdominal aorta is normal caliber. RETROPERITONEUM: Unremarkable. REPRODUCTIVE ORGANS: Unremarkable. BLADDER: Unremarkable. ABDOMINAL WALL: Small bilateral inguinal hernias containing only fat, no bowel. BONES: No acute abnormality. OTHER: None. CT/Abdomen/Pelvis W IV Cont ONLY IMPRESSION: Prominent folds in small bowel in the midabdomen nonspecific can be seen with ileus or enteritis. No other acute findings. Electronically Signed: Katelyn Shi MD at 2:43 EDT ,
[2023-08-11 02:04] LABS: Troponin-I HS 8 pg/mL (3.0-78.0)
[2023-08-11 02:06] VITALS: BP 131/86; PULSE 74; RESP 18; O2SAT 94
--- NOTE | 2023-08-11 03:05 | EX.ED.DYSGE1 ---
HPI History of Present Illness Chief Complaint: Chest Pain Informant: patient and spouse/S.O. Narrative Narrative: Patient is a 57-year-old male with past medical history of hypertension hyperlipidemia and COPD. He states roughly 1 hour prior to arrival he was sitting down when he noticed some pain in his left lower chest/upper abdomen. He states the pain then began radiating into his left sided abdomen. He denies any nausea vomiting diaphoresis or shortness of breath associated with this. He states that there has been no recent trauma or excessive activity. He reports he is unsure if this could be cardiac in nature or potentially related to his COPD and with this comes in for evaluation [facility] Medical History Asthma COPD (chronic obstructive pulmonary disease) CPAP (continuous positive airway pressure) dependence Hypertension Migraines Sleep apnea Smoker TIA (transient ischemic attack) Home Medications omeprazole 20 mg capsule,delayed release 20 mg PO DAILY ACID REFLUX 08/05/13 [History Last Taken 05/28/23] albuterol sulfate 90 mcg/actuation aerosol inhaler (Ventolin HFA) 1 - 2 puff inhalation Q4H PRN Wheezing 08/12/15 [History Last Taken 05/28/23] ejicmirgam-qdegjfbhenjnw-detyxjqd 50 mg-325 mg-40 mg tablet (Esgic) 1 tab PO Q4H PRN HEADACHES 05/05/21 [History Last Taken 05/27/23] mometasone-formoterol HFA 200 mcg-5 mcg/actuation aerosol inhaler (Dulera) 2 puff inhalation DAILY SHORTNESS OF BREATH 05/05/21 [History Last Taken 05/28/23] albuterol sulfate 2.5 mg/3 mL (0.083 %) solution for nebulization 2.5 mg inhalation Q6H PRN shortness of breath 05/28/23 [History Last Taken 05/27/23] cyclobenzaprine 10 mg tablet 10 mg PO DAILY MUSCLE SPASMS 05/28/23 [History Last Taken 05/26/23] oxycodone-acetaminophen 5 mg-325 mg tablet 1 - 2 tab PO Q6H PRN pain 3 days #14 tabs 05/28/23 [Rx Last Taken Unknown] oxymetazoline 0.05 % nasal mist (Afrin (oxymetazoline)) 2 spray intranasal BID NASAL CONGESTION 05/28/23 [History Last Taken 05/26/23] topiramate 50 mg tablet 50 mg PO QHS HEADACHE 05/28/23 [History Last Taken 05/27/23] varenicline 1 mg tablet 1 mg PO DAILY 05/28/23 [History Last Taken Unknown] metoprolol succinate 25 mg tablet,extended release 24 hr 25 mg PO DAILY 08/10/23 [History Last Taken Unknown] ondansetron 4 mg disintegrating tablet 4 mg PO TID PRN nausea and vomiting #21 tabs 08/11/23 [Rx Last Taken Unknown] oxycodone-acetaminophen 5 mg-325 mg tablet (Percocet) 1 tab PO Q6H PRN pain 3 days #12 tabs 08/11/23 [Rx Last Taken Unknown] Allergy/AdvReac Type Severity Reaction Status Date / Time raspberry Allergy Anaphylaxis Verified 08/10/23 23:18 strawberry Allergy Anaphylaxis Verified 08/10/23 23:18 Surgical History Hx of cardiac catheterization Hx of cataract surgery Hx of sinus surgery Social History Smoking Status: Current every day smoker tobacco type: cigarettes ROS ROS ED Constitutional Constitutional ED: Denies chills or fever(s) ENT ENT ED: Denies sore throat Cardiovascular Cardiovascular: Reports chest pain; Denies palpitations or racing heartbeat Respiratory/Chest Respiratory/Chest: Reports cough; Denies dyspnea Gastrointestinal Gastrointestinal: Reports abdominal pain; Denies diarrhea, nausea or vomiting Genitourinary Genitourinary ED: Denies dysuria or hematuria Musculoskeletal Musculoskeletal: Denies back pain or myalgias Integumentary Denies rash Neurologic Neurologic: Denies headache(s) Hematologic/Lymphatic Hematologic/Lymphatic: Denies easy bleeding or easy bruising EXAM Physical Exam Const Vital Signs: 08/10/23 23:18 08/10/23 23:20 08/11/23 00:15 Temperature 98.1 F Temperature Source Oral Pulse Rate 84 Respiratory Rate 19 H Respiratory Effort Normal Non-Labored Blood Pressure 158/91 H 146/69 H Blood Pressure Mean 113 92 Pulse Ox 98 Oxygen Delivery Method Room Air 08/11/23 00:20 08/11/23 01:00 08/11/23 02:06 Temperature Temperature Source Pulse Rate 76 72 74 Respiratory Rate 20 H 16 18 Respiratory Effort Blood Pressure 127/95 H 131/86 H Blood Pressure Mean 105 101 Pulse Ox 95 94 Oxygen Delivery Method Room Air Room Air 08/11/23 03:10 Temperature 98 F Temperature Source Pulse Rate 78 Respiratory Rate 16 Respiratory Effort Blood Pressure 144/90 H Blood Pressure Mean 108 Pulse Ox 96 Oxygen Delivery Method Positive well nourished and well developed General Appearance ED: well developed; Negative for pallor HEENT Reports moist mucous membranes Eyes PERRL and EOMs intact bilaterally General Eye ED: Negative for scleral icterus Neck supple Neck Narrative: No nuchal rigidity or meningeal signs noted Chest Wall Chest Narrative: There is reproducible pain with palpation of the left anterior chest wall without bony deformity or crepitance Resp normal respiratory effort Resp Narrative: Breath sounds are diminished throughout with faint rhonchi and wheeze in the bilateral lower lobes consistent with history of COPD but no signs of respiratory distress Cardio regular rate and regular rhythm Rate: other Other Details: Radial and carotid pulses equal and symmetric No murmurs rubs or gallops noted GI non-distended GI Narrative: Abdomen is soft and nondistended with normal active bowel sounds. Patient has pain with palpation in the midepigastric left upper quadrant of the abdomen without voluntary guarding or rigidity. No pulsatile mass or fluid wave Auscultation: normoactive bowel sounds Palpation: soft Back/Spine Back/Spine Narrative: Mild left CVA pain noted Extremity normal to inspection Extremity Narrative: No asymmetric edema no pitting edema negative Homans' sign bilaterally Neuro oriented x3 and CN's II-XII intact bilaterally Sensorium / Orientation: alert Psych mental status grossly normal Skin no rashes or lesions noted General Skin Exam: Negative for jaundice or pallor MDM MDM MDM Narrative Medical decision making narrative: Patient presented to the ER hypertensive but has a past medical history of this and otherwise with stable vitals. He reported pain in the left chest/upper abdomen without trauma. Differential diagnosis is for acute coronary syndrome versus pneumothorax versus pneumonia versus COPD exacerbation versus PE versus atypical biliary colic versus pancreatitis versus UTI versus kidney stone versus pyelonephritis. Secondary to this a large work-up was obtained. Patient's initial and delta troponin were normal at 8 going against acute coronary syndrome. EKG was sinus rhythm as well without ischemic or dysrhythmia changes. Patient is low risk for DVT/PE or dissection so a D-dimer was obtained which was normal going against this. Patient's urine showed no sign of infection or blood going against pyelonephritis or kidney stone. He did have a mild elevation to his lipase and with pain in the midepigastric to left upper quadrant abdomen atypical pancreatitis is a possibility so a CT was ordered. This revealed no obvious findings. On reevaluation the patient's had improvement of his pain and is resting comfortably. Therefore at this time his x-ray reveals no acute lung pathology and work-up reveals no sign of cardiac event and patient's symptoms have improved I do not feel there is need for further work-up in the ER and he is otherwise safe for discharge History & Record Review Discussion w/independent historian: Patient and Significant other Lab Data Attestation: I reviewed the patient's lab results. Labs: Laboratory Results - last 24 hr 08/10/23 08/10/23 08/11/23 23:20 23:50 01:38 WBC 10.7 RBC 5.37 Hgb 15.7 Hct 46.0 MCV 85.7 MCH 29.2 MCHC 34.1 RDW Std Deviation 42.0 RDW Coeff of George 13.6 Plt Count 176 MPV 11.5 Immature Gran % (Auto) 0.700 Neut % (Auto) 51.2 Lymph % (Auto) 36.7 Major % (Auto) 9.5 Eos % (Auto) 1.5 Baso % (Auto) 0.4 Absolute Neuts (auto) 5.5 Absolute Lymphs (auto) 3.94 Nucleated RBC % 0 D-Dimer Quant (PE/DVT) 0.33 Sodium 139 Potassium 3.8 Chloride 108 H Carbon Dioxide 22.0 Anion Gap 9 BUN 12 Creatinine 1.28 Estim Creat Clear Calc 58.81 Est GFR (MDRD) Af Amer 74 Est GFR (MDRD) Non-Af 61 BUN/Creatinine Ratio 9.4 L Glucose 121 H Calcium 8.6 Total Bilirubin 0.40 Direct Bilirubin < 0.05 AST 33 ALT 44 Alkaline Phosphatase 78 Troponin I High Sens 8 8 Total Protein 7.8 Albumin 3.6 Globulin 4.2 Lipase 109 H Urine Color Yellow Urine Clarity Clear Urine pH 6.5 Ur Specific Dudley 1.020 Urine Protein 15 H Urine Glucose (UA) Normal Urine Ketones Negative Urine Occult Blood Negative Urine Nitrite Negative Urine Bilirubin Negative Urine Urobilinogen 1 H Ur Leukocyte Esterase 25 H Urine RBC 0 SEEN Urine WBC 0 SEEN Ur Squamous Epith Cells 0 SEEN Urine Bacteria 0 SEEN Urine Mucus 0 SEEN Radiography Diagnostic Testing: Clinical Impression(s) from Imaging Studies Chest X-Ray 08/10/23 23:42 IMPRESSION: No evidence of active intrathoracic disease. Electronically Signed: Katelyn Shi MD at 0:45 EDT , Abdomen/Pelvis CT 08/11/23 01:29 IMPRESSION: Prominent folds in small bowel in the midabdomen nonspecific can be seen with ileus or enteritis. No other acute findings. Electronically Signed: Katelyn Shi MD at 2:43 EDT , Chest x-ray as interpreted by the emergency medicine physician reveals no acute infiltrate pneumothorax or pleural effusion Discharge Plan Triage Chief Complaint: Chest Pain ED Provider: Jas Teague Dx/Rx/DC Orders Clinical Impression: Nonspecific chest pain, Benign essential HTN, Tobacco user Instructions: ED Chest Pain, Uncertain Cause Prescriptions: New oxycodone-acetaminophen [Percocet] 5-325 mg tablet 1 tab PO Q6H PRN (Reason: pain) 3 Days Qty: 12 0RF ondansetron 4 mg tablet,disintegrating 4 mg PO TID PRN (Reason: nausea and vomiting) Qty: 21 0RF No Action omeprazole 20 MG capsule 20 mg PO DAILY albuterol sulfate [Ventolin HFA] 1 INHALER inhaler 1 - 2 puff inhalation Q4H PRN (Reason: Wheezing) manctyxfvi-wripnmqsmyvis-noed [Esgic] 50-325-40 mg tablet 1 tab PO Q4H PRN (Reason: HEADACHES) Dulera 200-5 mcg/actuation HFA aerosol inhaler 2 puff INHALATION DAILY topiramate 50 mg tablet 50 mg PO QHS varenicline 1 mg tablet 1 mg PO DAILY albuterol sulfate 2.5 mg /3 mL (0.083 %) solution for nebulization 2.5 mg inhalation Q6H PRN (Reason: shortness of breath) Patient Comments: USE 3 ML VIA NEBULIZER EVERY 6 HOURS NEEDED. USE OVER 5-15MINUTES. cyclobenzaprine 10 mg tablet 10 mg PO DAILY Afrin (oxymetazoline) 0.05 % mist 2 spray intranasal BID oxycodone-acetaminophen 5-325 mg tablet 1 - 2 tab PO Q6H PRN (Reason: pain) 3 Days Qty: 14 0RF metoprolol succinate 25 mg tablet extended release 24 hr 25 mg PO DAILY Patient Comments: TAKE 1 TABLET BY MOUTH EVERY DAY Primary Care Provider: Dilshad Chandler Referrals: Dilshad Chandler MD [Primary Care Provider] - Disposition Disposition: Home, Self Care Discharge Date/Time: 08/11/23 03:21
[2023-08-11] MEDS: Oxycodone/Apap 5/325 Tablet PO (03:09)
[2023-08-11 03:10] VITALS: BP 144/90; PULSE 78; RESP 16; TEMP 36.6; O2SAT 96
== END 2023-08-11 03:21 | disposition home or self-care (01) ==
PROVIDERS: Emergency Provider Emergency Medicine; PCP Family Medicine; Visit Provider Emergency Medicine
DX: R07.9 Chest pain, unspecified (principal); J44.9 Chronic obstructive pulmonary disease, unspecified; I10 Essential (primary) hypertension; F17.210 Nicotine dependence, cigarettes, uncomplicated; E78.5 Hyperlipidemia, unspecified
CPT/HCPCS: 71046; 74177; 80048; 80076; 81001; 83690; 84484; 85025; 85379; 93005; 96374; 96375; 99284; Q9967; A4216; J2405

== ENCOUNTER → 2023-09-15 | Outpatient (CLI) | payer MEDICAID, SELFPAY ==
--- NOTE | 2023-09-15 11:02 | STRESSREP ---
Stress Test Report Date: 09/15/2023 Procedure: Pharmacologic stress nuclear imaging study Indications: Chest pain Consent: Per the patient Procedure: The patient underwent pharmacologic (Regadenoson 0.4mg ) evaluation with a peak heart rate of 75 beats per minute (46%predicted maximal heart rate) and a peak blood pressure of 148/98 mmHg. The baseline ECG demonstrated sinus rhythm. The peak pharmacologic ECG demonstrated no ischemic changes. There were no cardiac dysrhythmias pretest, during pharmacologic infusion, or recovery. There was no complaint of chest discomfort during pharmacologic infusion or recovery. The patient was injected with 14.1 millicuries of technetium 99m Cardiolite and subsequently rest SPECT Cardiolite nuclear imaging was obtained in the horizontal long, vertical long, and short axis views. The patient underwent pharmacologic (Regadenoson) evaluation. The patient was injected with 44.3 millicuries of technetium 99m Cardiolite and subsequently stress SPECT Cardiolite nuclear imaging was obtained in the horizontal long, vertical long, and short axis views. A gated Cardiolite study at peak stress was obtained. The examination was stopped secondary to completion of protocol. Rest and stress SPECT Cardiolite nuclear imaging status post realignment, normalization, and attenuation correction demonstrate no fixed or reversible perfusion defects. There is end systolic thickening and brightening. The gated Cardiolite study demonstrates myocardial thickening and inward wall motion. The reported LVEF is 57%. Impression: 1. Pharmacologic (Regadenoson) evaluation 2. Peak pharmacologic ECG with no ischemic changes. 3. There were no cardiac dysrhythmias pretest, during pharmacologic infusion, or recovery. 5. Rest and stress SPECT Cardiolite nuclear imaging demonstrate relative uniform tracer uptake and myocardial perfusion appearing within normal limits. 6. The gated Cardiolite study reports an LVEF of 57%. This note was generated with [employer] software. It may contain incorrect words, spelling, and punctuation that were not noted in checking the note before signing.
== END | disposition home or self-care (01) ==
LOC: CVS 06:24
PROVIDERS: PCP Family Medicine; Referring Provider Family Medicine; Visit Provider Family Medicine
DX: R00.2 Palpitations (principal); R07.9 Chest pain, unspecified; R06.02 Shortness of breath
CPT/HCPCS: 78452; 93017; A9500; A4216; J2785